=== PATIENT | female | born 1950 | race American Indian/Alaskan Native ===

== ENCOUNTER 2017-01-30 11:17 | Inpatient (IN) | payer MEDICARE ==
[2017-01-30] MEDS ORDERED: QUELICIN IV ONE (11:21)
[2017-01-30] MEDS ORDERED: NACL 0.9% 1000 ML 1,000 ML ONE (11:24)
[2017-01-30] MEDS ORDERED: NORMODYNE IV ONE ×3 (11:28→14:09)
[2017-01-30] MEDS ORDERED: ARTIFICIAL TEARS OPHTH OINT OU PRN (11:34)
[2017-01-30] MEDS ORDERED: VASELINE LIP THERAPY TP PRN (11:34)
[2017-01-30] MEDS ORDERED: KETALAR IV ONE ×4 (11:37→11:48)
[2017-01-30] MEDS ORDERED: VERSED IV ONE ×2 (11:53→22:32)
[2017-01-30] MEDS ORDERED: ZEMURON IV ONE ×2 (11:59→22:32)
[2017-01-30] MEDS ORDERED: MAGNESIUM SULFATE 2GM/50ML 2 GM/50 ML BAG IV ONE ×2 (11:59→14:09)
[2017-01-30] MEDS ORDERED: NACL 0.9% 500 ML IV SCH (12:00)
[2017-01-30] MEDS ORDERED: VERSED IV NR (12:00)
[2017-01-30] MEDS: ATIVAN 100 MG in NACL 0.9% 50 ML, VIAFLEX EMPTY CONTAINER 0 ML IV SCH ×2 (12:01→18:46)
[2017-01-30] MEDS ORDERED: DUONEB *Not for PRN Use IH ONE (12:02)
--- NOTE | 2017-01-30 12:02 | XRay Report ---
Single view chest: This History: Dysphagia. Findings: Normal cardiomediastinal silhouette. Tip of endotracheal tube in normal position. Trachea is midline. Diffuse interstitial infiltrates noted in the right lung with few scattered infiltrates in the left perihilar and left lower lobe. Normal CP angles. Impression: Probable unilateral pulmonary edema and less likely diffuse pneumonia.
[2017-01-30] MEDS ORDERED: ROCEPHIN/NS 1 GM/50 ML 1 GM/50 ML BAG IV ONE (12:14)
[2017-01-30] MEDS ORDERED: LEVAQUIN 750MG/150ML 750 MG/150 ML BAG IV ONE (12:14)
[2017-01-30 12:29] LABS: ISTAT Base Excess -5; ISTAT HCO3 22.4; ISTAT PCO2 49.7 (35-45); ISTAT PH 7.262 (7.35-7.45); ISTAT PO2 220 (80-105); ISTAT SO2 100; ISTAT TCO2 24
[2017-01-30 12:35] LABS: Hematocrit 37.7 % (30.3-42.9); Hemoglobin 11.6 gm/dl (10.1-14.3); Mean Corpuscular HGB Conc 31 % (30-34); Mean Corpuscular Hemoglobin 29 pg (28-32); Mean Corpuscular Volume 93 fl (79-97); Platelet Count 287 K/mm3 (140-440); Red Blood Count 4.06 M/mm3 (3.65-5.03); White Blood Count 5.3 K/mm3 (4.5-11.0)
[2017-01-30 12:47] LABS: Partial Thromboplastin Time 26.8 Sec. (24.2-36.6)
[2017-01-30 12:50] LABS: Creatine Kinase MB 4.4 ng/mL (0.0-4.0)
[2017-01-30 12:52] LABS: Calcium 9.6 mg/dL (8.4-10.2); Chloride 102.6 mmol/L (98-107); Magnesium 2.8 mg/dL (1.7-2.3)
[2017-01-30 12:53] LABS: Alanine Aminotransferase 26 units/L (7-56); Albumin 3.4 g/dL (3.9-5); Albumin/Globulin Ratio 0.8 %; Alkaline Phosphatase 175 units/L (35-129); Total Protein 7.6 g/dL (6.3-8.2)
[2017-01-30] MEDS ORDERED: cefTRIAXone 1 GM in NACL 0.9% 20 ML IV ONE (13:00)
[2017-01-30] MEDS ORDERED: VANCOMYCIN PHARMACY TO DOSE IV SCH (13:00)
[2017-01-30 13:03] LABS: Bilirubin,Direct < 0.2 mg/dL (0-0.2)
[2017-01-30] MEDS ORDERED: VANCOMYCIN 1,750 MG in NACL 0.9% 500 ML 500 ML IV ONE (13:45)
--- NOTE | 2017-01-30 13:45 | Consultation ---
History of Present Illness Consult date: 01/30/17 Requesting physician: NOE CUEVAS Reason for consult: other (Acute hypoxic respiraotry failure on mechnaical vent support, Right lung pneumonia) History of present illness: Information is obtained from review of her medical records and ER notes. Patient is orally intubated and on a lorazepam infusion and is unable to give me a history. She was seen and examined. Vitlas, labs, medications, chart and imaging were reviewed. Patient presented to the emergency department via EMS in respiratory distress. Apparently she was found with labored respirations. Paramedics were unable to get a pulse oximetry. They applied supplemental oxygen but not CPAP. They did not assist her airway with an Ambu bag. Alla arrived at this facility and the first pulse oximetry value was in the high 20s. The patient was placed on BIPAP in anticipation for RSI. BiPAP was very effective in preventing the patient's pulse oximetry to the low 90s, initially but she became labored, desaturated and was intubated in the ER by the ER physician. She was placed on mechanical ventilatory support and I have been consulted for critical care management. Medications and Allergies Allergies Allergy/AdvReac Type Severity Reaction Status Date / Time Sulfa (Sulfonamide Allergy Unknown Verified 01/30/17 17:09 Antibiotics) Active Meds: Active Medications Hydrophilic Ointment (Vaseline Lip Therapy) 1 applic TP Q2HR PRN PRN Reason: Dry Lips Lorazepam 100 mg/ Sodium Chloride/ Miscellaneous Information 100 mls @ 1 mls/ hr IV TITR ALFONZO; 1 MG/HR PRN Reason: Protocol Last Admin: 01/30/17 12:01 Dose: 1 mg/hr, 1 mls/hr Vancomycin HCl 1,750 mg/ (Sodium Chloride) 517.5 mls @ 258.75 mls/hr IV ONCE.ED ONE Stop: 01/30/17 15:44 Midazolam HCl (Versed) 2 mg IV ONCE NR Stop: 01/30/17 23:00 Multi-Ingred Cream/Lotion/Oil/Oint (Artificial Tears Ophth Oint) 1 applic OU Q4HR PRN PRN Reason: Dry Eye(s) Sodium Chloride (Nacl 0.9% 500 Ml) 1 ml IV DIRECT ALFONZO Vancomycin HCl (Vancomycin Pharmacy To Dose) 1 each IV PKCONSULT ALFONZO PRN Reason: Protocol Review of Systems ROS unobtainable: due to endotracheal tube, due to mental status Physical Examination Vital signs: Vital Signs Pulse Resp BP Pulse Ox 147 H 18 222/132 100 01/30/17 11:23 01/30/17 11:23 01/30/17 11:23 01/30/17 11:23 General appearance: agitated, other (orally intubated to MVS) Eyes: non-icteric ENT: oropharynx moist Neck: supple, no lymphadenopathy, no JVD Effort: mildly labored Ascultation: Right: rhonchi, Bilateral: diminished breath sounds, wheezes Cardiovascular: regular rate and rhythm, other (S1,S2, No murmurs, gallops or rubs) Gastrointestinal: normoactive bowel sounds, soft, non-tender, non-distended Integumentary: normal Extremities: no cyanosis, no edema, pulses normal, other (plaque like, pigmented lesions on the anterior tibial surfaces bilaterally) non-focal exam (patient was able to obey one step commands), pupils equal and round, unable to assess (s) Results - Laboratory Findings CBC and BMP: 01/30/17 12:10 01/30/17 12:10 ABG POC ABG pH 7.262 (7.35-7.45) L 01/30/17 12:27 POC ABG pCO2 49.7 (35-45) H 01/30/17 12:27 POC ABG pO2 220 (80-105) H 01/30/17 12:27 POC ABG HCO3 22.4 01/30/17 12:27 POC ABG Total CO2 24 01/30/17 12:27 POC ABG O2 Sat 100 01/30/17 12:27 PT/INR, D-dimer PT 13.7 Sec. (12.2-14.9) 01/30/17 12:10 INR 1.00 (0.87-1.13) 01/30/17 12:10 D-Dimer 1524.84 ng/mlDDU (0-234) H 01/30/17 12:10 Abnormal lab findings: Abnormal Labs 01/30/17 01/30/17 01/30/17 12:10 12:10 12:10 RDW 16.0 H D-Dimer 1524.84 H POC ABG pH POC ABG pCO2 POC ABG pO2 VBG pH BUN 21 H Creatinine 3.1 H Glucose 276 H Magnesium 2.80 H Alkaline Phosphatase Total Creatine Kinase 260 H CK-MB (CK-2) 4.4 H Troponin T 0.044 H NT-Pro-B Natriuret Pep Albumin HDL Cholesterol 70 H 01/30/17 01/30/17 01/30/17 12:10 12:10 12:27 RDW D-Dimer POC ABG pH 7.262 L POC ABG pCO2 49.7 H POC ABG pO2 220 H VBG pH 7.104 L* BUN Creatinine Glucose Magnesium Alkaline Phosphatase 175 H Total Creatine Kinase CK-MB (CK-2) Troponin T NT-Pro-B Natriuret Pep 9813 H Albumin 3.4 L HDL Cholesterol - Diagnostic Findings Chest x-ray: image reviewed (Right lung infiltrate multilobar, cardiomegally) Assessment and Plan - Patient Problems (1) Acute on chronic respiratory failure with hypoxia and hypercapnia Current Visit: Yes Status: Acute Plan to address problem: Continue with mechanical ventilatory support VAP bundle addressed VTE prophylaxis Stress ulcer prophylaxis Wean supplemental oxygen for O2 sats >88% Restrictive oxygen therapy Agitation and anxiety management Avoid benzodiazepines Adjust ventilator settings for improved gas exchange Lung protective strategies Daily SBT/SAT trials Serial ABGs and CXRs Patient has an elevated D-dimer, get lower extremity dopplers, however she does have enough reason for the elevation in her D-dimer (2) Multifocal pneumonia Current Visit: Yes Status: Acute Plan to address problem: Antibiotics for CAP. Appears to have an aspiration component. Moxifloxacin- as it does not need adjustments for renal function and it also treats for aspiration (3) COPD exacerbation Current Visit: Yes Status: Acute Plan to address problem: Bronchodilators Steroids while monitoring accuchecks and glycemic control Short steroid taper in view of possible heart failure (4) Cardiomyopathy Current Visit: Yes Status: Acute Qualifiers: Cardiomyopathy type: unspecified Qualified Code(s): I42.9 - Cardiomyopathy , unspecified Plan to address problem: Get 2 Dechocardiogram (5) Renal failure Current Visit: Yes Status: Acute Qualifiers: Renal failure chronicity: acute Acute renal failure type: unspecified Qualified Code(s): N17.9 - Acute kidney failure, unspecified Plan to address problem: Avoid nephrotoxic agents Adjust all medications for GFR and CrCl Monitor closely. (6) Diabetes mellitus Current Visit: Yes Status: Acute (7) Morbid obesity Current Visit: Yes Status: Acute ED Critical Care Note - Critical Care Note Total Time (mins): 61 Critical care time in (mins) excluding proc time.: 61 Critical care attestation.: If time is entered above; I have spent that time in minutes in the direct care of this critically ill patient, excluding procedure time.
[2017-01-30] MEDS ORDERED: PROVENTIL IH PRN (13:50)
[2017-01-30] MEDS ORDERED: ALUM-MAG HYDROX-SIMETH 200-200-20MG/5ML PO PRN (13:50)
[2017-01-30] MEDS ORDERED: MILK OF MAGNESIA PO PRN (13:50)
[2017-01-30] MEDS ORDERED: ZOFRAN IV PRN (13:50)
[2017-01-30] MEDS ORDERED: REGLAN PO PRN (13:50)
[2017-01-30] MEDS ORDERED: DULCOLAX PR PRN (13:50)
[2017-01-30] MEDS ORDERED: TORADOL IV PRN (13:50)
--- NOTE | 2017-01-30 14:06 | History and Physical Report ---
<DAHLIA WRIGHT - Last Filed: 01/31/17 16:33> History of Present Illness Date of examination: 01/30/17 Date of admission: 01/30/17 12:20 History of present illness: Patient presented to the emergency department via EMS in respiratory distress. Apparently she was found with labored respirations. Paramedics were unable to get a pulse oximetry. They applied supplemental oxygen but not CPAP. They did not assist her airway with an Ambu bag. Alla arrived at this facility and the first pulse oximetry value was in the high 20s. The patient was placed on BIPAP in anticipation for RSI. BiPAP was very effective in preventing the patient's pulse oximetry to the low 90s, initially but she became labored, desaturated and was intubated in the ER by the ER physician. She was placed on mechanical ventilatory support and I have been consulted for critical care management. Past History Past Medical History: hypertension, hyperlipidemia Past Surgical History: Other (unknown) Social history: smoking (never smoked) Family history: other (unknown) Medications and Allergies Allergies Allergy/AdvReac Type Severity Reaction Status Date / Time Sulfa (Sulfonamide Allergy Unknown Verified 01/30/17 17:09 Antibiotics) Home Medications Medication Instructions Recorded Confirmed Last Taken Type ALBUTEROL NEB's [Proventil] 2.5 mg IH PRN 01/31/17 01/31/17 Unknown History Albuterol Sulfate [Proventil Hfa] 6.7 gm IH PRN 01/31/17 01/31/17 Unknown History Aspirin EC [Aspirin Enteric Coated 81 mg PO QDAY 01/31/17 01/31/17 Unknown History TAB] ISOSORBIDE MONOnitrate [Imdur ER] 30 mg PO DAILY 01/31/17 01/31/17 Unknown History Metoprolol Xl [Metoprolol 100 mg PO QDAY 01/31/17 01/31/17 Unknown History SUCCINATE ER TAB] Rosuvastatin (Nf) [Crestor] 10 mg PO QDAY 01/31/17 01/31/17 Unknown History amLODIPine [Norvasc] 10 mg PO DAILY 01/31/17 01/31/17 Unknown History hydrALAZINE [Apresoline TAB] 100 mg PO TID 01/31/17 01/31/17 Unknown History Active Meds: Active Medications Al Hydrox/Mg Hydrox/Simethicone (Alum-Mag Hydrox-Simeth [phone]/5ml) 30 ml PO Q4H PRN PRN Reason: Indigestion Albuterol (Proventil) 2.5 mg IH Q3HRT PRN PRN Reason: Shortness Of Breath Bisacodyl (Dulcolax) 10 mg HI QDAY PRN PRN Reason: constipation unrelieved by MOM Heparin Sodium (Porcine) (Heparin) 5,000 unit SUB-Q Q8HR ALFONZO Hydrophilic Ointment (Vaseline Lip Therapy) 1 applic TP Q2HR PRN PRN Reason: Dry Lips Lorazepam 100 mg/ Sodium Chloride/ Miscellaneous Information 100 mls @ 1 mls/ hr IV TITR ALFONZO; 1 MG/HR PRN Reason: Protocol Last Admin: 01/30/17 12:01 Dose: 1 mg/hr, 1 mls/hr Vancomycin HCl 1,750 mg/ (Sodium Chloride) 517.5 mls @ 258.75 mls/hr IV ONCE.ED ONE Stop: 01/30/17 15:44 Ketorolac Tromethamine (Toradol) 15 mg IV Q6H PRN PRN Reason: Pain, Mild (1-3) Stop: 02/04/17 13:49 Magnesium Hydroxide (Milk Of Magnesia) 30 ml PO Q4H PRN PRN Reason: Constipation Metoclopramide HCl (Reglan) 10 mg PO Q6H PRN PRN Reason: Nausea And Vomiting Midazolam HCl (Versed) 2 mg IV ONCE NR Stop: 01/30/17 23:00 Morphine Sulfate (Morphine) 2 mg IV Q4H PRN PRN Reason: Pain, Moderate (4-6) Multi-Ingred Cream/Lotion/Oil/Oint (Artificial Tears Ophth Oint) 1 applic OU Q4HR PRN PRN Reason: Dry Eye(s) Sodium Chloride (Nacl 0.9% 500 Ml) 1 ml IV DIRECT ALFONZO Vancomycin HCl (Vancomycin Pharmacy To Dose) 1 each IV PKCONSULT ALFONZO PRN Reason: Protocol Exam - Constitutional Vitals: Temp Pulse Resp BP Pulse Ox 97.6 F 100 H 22 134/88 96 01/30/17 12:50 01/30/17 13:15 01/30/17 13:15 01/30/17 13:15 01/30/17 13:15 - Rectal Rectal Exam: deferred - Allied Health Allied health notes reviewed: nursing Results - Labs CBC & Chem 7: 01/31/17 04:27 01/31/17 04:27 Labs: Laboratory Last Values WBC 5.3 K/mm3 (4.5-11.0) 01/30/17 12:10 RBC 4.06 M/mm3 (3.65-5.03) 01/30/17 12:10 Hgb 11.6 gm/dl (10.1-14.3) 01/30/17 12:10 Hct 37.7 % (30.3-42.9) 01/30/17 12:10 MCV 93 fl (79-97) 01/30/17 12:10 MCH 29 pg (28-32) 01/30/17 12:10 MCHC 31 % (30-34) 01/30/17 12:10 RDW 16.0 % (13.2-15.2) H 01/30/17 12:10 Plt Count 287 K/mm3 (140-440) 01/30/17 12:10 Eos % (Auto) Conventional Underwriter 01/30/17 12:10 PT 13.7 Sec. (12.2-14.9) 01/30/17 12:10 INR 1.00 (0.87-1.13) 01/30/17 12:10 APTT 26.8 Sec. (24.2-36.6) 01/30/17 12:10 D-Dimer 1524.84 ng/mlDDU (0-234) H 01/30/17 12:10 POC ABG pH 7.262 (7.35-7.45) L 01/30/17 12:27 POC ABG pCO2 49.7 (35-45) H 01/30/17 12:27 POC ABG pO2 220 (80-105) H 01/30/17 12:27 POC ABG HCO3 22.4 01/30/17 12:27 POC ABG Total CO2 24 01/30/17 12:27 POC ABG O2 Sat 100 01/30/17 12:27 POC ABG Base Excess -5 01/30/17 12:27 VBG pH 7.104 (7.320-7.420) L* 01/30/17 12:10 FiO2 50 % 01/30/17 12:27 Sodium 139 mmol/L (137-145) 01/30/17 12:10 Potassium 5.0 mmol/L (3.6-5.0) 01/30/17 12:10 Chloride 102.6 mmol/L (98-107) 01/30/17 12:10 Carbon Dioxide 23 mmol/L (22-30) 01/30/17 12:10 Anion Gap 18 mmol/L 01/30/17 12:10 BUN 21 mg/dL (7-17) H 01/30/17 12:10 Creatinine 3.1 mg/dL (0.7-1.2) H 01/30/17 12:10 Estimated GFR 18 ml/min 01/30/17 12:10 BUN/Creatinine Ratio 7 % 01/30/17 12:10 Glucose 276 mg/dL (65-100) H 01/30/17 12:10 Ketones Quantitative Negative (Negative) 01/30/17 12:10 Calcium 9.6 mg/dL (8.4-10.2) 01/30/17 12:10 Magnesium 2.80 mg/dL (1.7-2.3) H 01/30/17 12:10 Total Bilirubin 0.20 mg/dL (0.1-1.2) 01/30/17 12:10 Direct Bilirubin < 0.2 mg/dL (0-0.2) 01/30/17 12:10 AST 33 units/L (5-40) 01/30/17 12:10 ALT 26 units/L (7-56) 01/30/17 12:10 Alkaline Phosphatase 175 units/L (35-129) H 01/30/17 12:10 Total Creatine Kinase 260 units/L (30-135) H 01/30/17 12:10 CK-MB (CK-2) 4.4 ng/mL (0.0-4.0) H 01/30/17 12:10 CK-MB (CK-2) Rel Index 1.6 (0-4) 01/30/17 12:10 Troponin T 0.044 ng/mL (0.00-0.029) H 01/30/17 12:10 NT-Pro-B Natriuret Pep 9813 pg/mL (0-900) H 01/30/17 12:10 Total Protein 7.6 g/dL (6.3-8.2) 01/30/17 12:10 Albumin 3.4 g/dL (3.9-5) L 01/30/17 12:10 Albumin/Globulin Ratio 0.8 % 01/30/17 12:10 Triglycerides 115 mg/dL (2-149) 01/30/17 12:10 Cholesterol 157 mg/dL (50-199) 01/30/17 12:10 LDL Cholesterol Direct 64 mg/dL (50-130) 01/30/17 12:10 HDL Cholesterol 70 mg/dL (40-59) H 01/30/17 12:10 Cholesterol/HDL Ratio 2.24 % 01/30/17 12:10 Blood Type A POSITIVE 01/30/17 12:09 Antibody Screen Negative 01/30/17 12:09 Assessment and Plan - Patient Problems (1) Hyperglycemia Current Visit: Yes Status: Acute (2) GEORGE (acute kidney injury) Current Visit: Yes Status: Acute (3) Respiratory failure Current Visit: Yes Status: Acute QualifierTitle: Chronicity: acute Respiratory failure complication: hypoxia Qualified Code(s): J96.01 - Acute respiratory failure with hypoxia (4) UTI (urinary tract infection) Current Visit: Yes Status: Acute QualifierTitle: Urinary tract infection type: acute cystitis Hematuria presence: without hematuria Qualified Code(s): N30.00 - Acute cystitis without hematuria (5) Cardiomyopathy Current Visit: Yes Status: Chronic QualifierTitle: Cardiomyopathy type: unspecified Qualified Code(s): I42.9 - Cardiomyopathy, unspecified <NOE CUEVAS S - Last Filed: 02/01/17 11:35> History of Present Illness Date of admission: 01/30/17 12:20 Chief complaint: CC AMS and decreased /Laborious respirations Medications and Allergies Active Meds: Active Medications Al Hydrox/Mg Hydrox/Simethicone (Alum-Mag Hydrox-Simeth [phone]/5ml) 30 ml PO Q4H PRN PRN Reason: Indigestion Albuterol (Proventil) 2.5 mg IH Q3HRT PRN PRN Reason: Shortness Of Breath Aspirin (Aspirin) 300 mg HI QDAY ONE Stop: 01/31/17 17:31 Bisacodyl (Dulcolax) 10 mg HI QDAY PRN PRN Reason: constipation unrelieved by MOM Heparin Sodium (Porcine) (Heparin) 5,000 unit SUB-Q Q8HR ALFONZO Hydrophilic Ointment (Vaseline Lip Therapy) 1 applic TP Q2HR PRN PRN Reason: Dry Lips Lorazepam 100 mg/ Sodium Chloride/ Miscellaneous Information 100 mls @ 1 mls/ hr IV TITR ALFONZO; 1 MG/HR PRN Reason: Protocol Last Admin: 01/30/17 18:46 Dose: 5 mg/hr, 5 mls/hr Vancomycin HCl 1,250 mg/ (Sodium Chloride) 262.5 mls @ 131.25 mls/hr IV Q48H ALFONZO Fentanyl Citrate (Fentanyl Drip Premix) 2,000 mcg in 100 mls @ 2.268 mls/hr IV TITR ALFONZO; 0.5 MCG/KG/HR PRN Reason: Protocol Last Admin: 01/30/17 14:57 Dose: 1 mcg/kg/hr, 4.536 mls/hr Propofol (Diprivan 10 Mg/Ml) 1,000 mg in 100 mls @ 2.722 mls/hr IV TITR ALFONZO; 5 MCG/KG/MIN PRN Reason: Protocol Last Admin: 01/30/17 21:50 Dose: 18 mcg/kg/min, 9.798 mls/hr Piperacillin Sod/Tazobactam Sod (Zosyn/Ns 2.25 Gm/50ml) 2.25 gm in 50 mls @ 100 mls/hr IV Q8H ALFONZO PRN Reason: Protocol Last Admin: 01/30/17 20:28 Dose: 100 mls/hr Ketorolac Tromethamine (Toradol) 15 mg IV Q6H PRN PRN Reason: Pain, Mild (1-3) Stop: 02/04/17 13:49 Magnesium Hydroxide (Milk Of Magnesia) 30 ml PO Q4H PRN PRN Reason: Constipation Metoclopramide HCl (Reglan) 10 mg PO Q6H PRN PRN Reason: Nausea And Vomiting Morphine Sulfate (Morphine) 2 mg IV Q4H PRN PRN Reason: Pain, Moderate (4-6) Multi-Ingred Cream/Lotion/Oil/Oint (Artificial Tears Ophth Oint) 1 applic OU Q4HR PRN PRN Reason: Dry Eye(s) Ondansetron HCl (Zofran) 4 mg IV Q8H PRN PRN Reason: N/V unrelieved by Reglan Sodium Chloride (Nacl 0.9% 500 Ml) 1 ml IV DIRECT ALFONZO Vancomycin HCl (Vancomycin Pharmacy To Dose) 1 each IV PKCONSULT ALFONZO PRN Reason: Protocol Review of Systems All systems: negative Respiratory: shortness of breath, wheezing Exam - Constitutional Vitals: Temp Pulse Resp BP Pulse Ox 99.2 F 104 H 20 144/73 98 01/30/17 23:37 01/31/17 01:56 01/30/17 17:30 01/30/17 19:15 01/31/17 01:56 General appearance: Present: no acute distress, well-nourished - EENT Eyes: Present: PERRL ENT: hearing intact, clear oral mucosa - Neck Neck: Present: supple, normal ROM - Respiratory Respiratory effort: normal Respiratory: bilateral: CTA, diminished, rhonchi - Cardiovascular Heart rate: 106 Rhythm: regular Heart Sounds: Present: S1 & S2. Absent: rub, click - Extremities Extremities: pulses symmetrical, No edema Peripheral Pulses: within normal limits - Abdominal General gastrointestinal: Present: soft, non-tender, non-distended, normal bowel sounds Female genitourinary: Present: normal - Integumentary Integumentary: Present: clear, warm, dry - Musculoskeletal Musculoskeletal: gait normal, strength equal bilaterally - Psychiatric Psychiatric: appropriate mood/affect, intact judgment & insight - Neurologic Neurologic: CNII-XII intact, moves all extremities Results - Labs CBC & Chem 7: 01/31/17 04:27 02/01/17 07:57 Labs: Laboratory Last Values WBC 5.3 K/mm3 (4.5-11.0) 01/30/17 12:10 RBC 4.06 M/mm3 (3.65-5.03) 01/30/17 12:10 Hgb 11.6 gm/dl (10.1-14.3) 01/30/17 12:10 Hct 37.7 % (30.3-42.9) 01/30/17 12:10 MCV 93 fl (79-97) 01/30/17 12:10 MCH 29 pg (28-32) 01/30/17 12:10 MCHC 31 % (30-34) 01/30/17 12:10 RDW 16.0 % (13.2-15.2) H 01/30/17 12:10 Plt Count 287 K/mm3 (140-440) 01/30/17 12:10 Eos % (Auto) Conventional Underwriter 01/30/17 12:10 Add Manual Diff Complete 01/30/17 12:10 Total Counted 100 01/30/17 12:10 Seg Neuts % (Manual) 34.0 % (40.0-70.0) L 01/30/17 12:10 Band Neutrophils % 0 % 01/30/17 12:10 Lymphocytes % (Manual) 29.0 % (13.4-35.0) 01/30/17 12:10 Reactive Lymphs % (Man) 0 % 01/30/17 12:10 Monocytes % (Manual) 6.0 % (0.0-7.3) 01/30/17 12:10 Eosinophils % (Manual) 30.0 % (0.0-4.3) H 01/30/17 12:10 Basophils % (Manual) 1.0 % (0.0-1.8) 01/30/17 12:10 Metamyelocytes % 0 % 01/30/17 12:10 Myelocytes % 0 % 01/30/17 12:10 Promyelocytes % 0 % 01/30/17 12:10 Blast Cells % 0 % 01/30/17 12:10 Nucleated RBC % Not Reportable 01/30/17 12:10 Seg Neutrophils # Man 1.8 K/mm3 (1.8-7.7) 01/30/17 12:10 Band Neutrophils # 0.0 K/mm3 01/30/17 12:10 Lymphocytes # (Manual) 1.5 K/mm3 (1.2-5.4) 01/30/17 12:10 Abs React Lymphs (Man) 0.0 K/mm3 01/30/17 12:10 Monocytes # (Manual) 0.3 K/mm3 (0.0-0.8) 01/30/17 12:10 Eosinophils # (Manual) 1.6 K/mm3 (0.0-0.4) H 01/30/17 12:10 Basophils # (Manual) 0.1 K/mm3 (0.0-0.1) 01/30/17 12:10 Metamyelocytes # 0.0 K/mm3 01/30/17 12:10 Myelocytes # 0.0 K/mm3 01/30/17 12:10 Promyelocytes # 0.0 K/mm3 01/30/17 12:10 Blast Cells # 0.0 K/mm3 01/30/17 12:10 WBC Morphology Not Reportable 01/30/17 12:10 Hypersegmented Neuts Not Reportable 01/30/17 12:10 Hyposegmented Neuts Not Reportable 01/30/17 12:10 Hypogranular Neuts Not Reportable 01/30/17 12:10 Smudge Cells Not Reportable 01/30/17 12:10 Toxic Granulation Not Reportable 01/30/17 12:10 Toxic Vacuolation Not Reportable 01/30/17 12:10 Dohle Bodies Not Reportable 01/30/17 12:10 Pelger-Huet Anomaly Not Reportable 01/30/17 12:10 Robert Rods Not Reportable 01/30/17 12:10 Platelet Estimate Appears normal 01/30/17 12:10 Clumped Platelets Not Reportable 01/30/17 12:10 Plt Clumps, EDTA Not Reportable 01/30/17 12:10 Large Platelets Not Reportable 01/30/17 12:10 Giant Platelets Not Reportable 01/30/17 12:10 Platelet Satelliting Not Reportable 01/30/17 12:10 Plt Morphology Comment Not Reportable 01/30/17 12:10 RBC Morphology Not Reportable 01/30/17 12:10 Dimorphic RBCs Not Reportable 01/30/17 12:10 Polychromasia Not Reportable 01/30/17 12:10 Hypochromasia Not Reportable 01/30/17 12:10 Poikilocytosis Not Reportable 01/30/17 12:10 Anisocytosis 1+ 01/30/17 12:10 Microcytosis Not Reportable 01/30/17 12:10 Macrocytosis Not Reportable 01/30/17 12:10 Spherocytes Not Reportable 01/30/17 12:10 Pappenheimer Bodies Not Reportable 01/30/17 12:10 Sickle Cells Not Reportable 01/30/17 12:10 Target Cells Not Reportable 01/30/17 12:10 Tear Drop Cells Not Reportable 01/30/17 12:10 Ovalocytes Few 01/30/17 12:10 Helmet Cells Not Reportable 01/30/17 12:10 Major-[place] Bodies Not Reportable 01/30/17 12:10 [place] Rings Not Reportable 01/30/17 12:10 Derrell Cells Not Reportable 01/30/17 12:10 Bite Cells Not Reportable 01/30/17 12:10 Crenated Cell Not Reportable 01/30/17 12:10 Elliptocytes Not Reportable 01/30/17 12:10 Acanthocytes (Spur) Not Reportable 01/30/17 12:10 Rouleaux Not Reportable 01/30/17 12:10 Hemoglobin C Crystals Not Reportable 01/30/17 12:10 Schistocytes Not Reportable 01/30/17 12:10 Malaria parasites Not Reportable 01/30/17 12:10 Patrice Bodies Not Reportable 01/30/17 12:10 Hem Pathologist Commnt No 01/30/17 12:10 PT 13.7 Sec. (12.2-14.9) 01/30/17 12:10 INR 1.00 (0.87-1.13) 01/30/17 12:10 APTT 26.8 Sec. (24.2-36.6) 01/30/17 12:10 D-Dimer 1524.84 ng/mlDDU (0-234) H 01/30/17 12:10 POC ABG pH 7.262 (7.35-7.45) L 01/30/17 12:27 POC ABG pCO2 49.7 (35-45) H 01/30/17 12:27 POC ABG pO2 220 (80-105) H 01/30/17 12:27 POC ABG HCO3 22.4 01/30/17 12:27 POC ABG Total CO2 24 01/30/17 12:27 POC ABG O2 Sat 100 01/30/17 12:27 POC ABG Base Excess -5 01/30/17 12:27 VBG pH 7.104 (7.320-7.420) L* 01/30/17 12:10 FiO2 50 % 01/30/17 12:27 Sodium 139 mmol/L (137-145) 01/30/17 12:10 Potassium 5.0 mmol/L (3.6-5.0) 01/30/17 12:10 Chloride 102.6 mmol/L (98-107) 01/30/17 12:10 Carbon Dioxide 23 mmol/L (22-30) 01/30/17 12:10 Anion Gap 18 mmol/L 01/30/17 12:10 BUN 21 mg/dL (7-17) H 01/30/17 12:10 Creatinine 3.1 mg/dL (0.7-1.2) H 01/30/17 12:10 Estimated GFR 18 ml/min 01/30/17 12:10 BUN/Creatinine Ratio 7 % 01/30/17 12:10 Glucose 276 mg/dL (65-100) H 01/30/17 12:10 Ketones Quantitative Negative (Negative) 01/30/17 12:10 Lactic Acid 2.00 mmol/L (0.7-2.0) 01/30/17 17:55 Calcium 9.6 mg/dL (8.4-10.2) 01/30/17 12:10 Magnesium 2.80 mg/dL (1.7-2.3) H 01/30/17 12:10 Total Bilirubin 0.20 mg/dL (0.1-1.2) 01/30/17 12:10 Direct Bilirubin < 0.2 mg/dL (0-0.2) 01/30/17 12:10 AST 33 units/L (5-40) 01/30/17 12:10 ALT 26 units/L (7-56) 01/30/17 12:10 Alkaline Phosphatase 175 units/L (35-129) H 01/30/17 12:10 Total Creatine Kinase 260 units/L (30-135) H 01/30/17 12:10 CK-MB (CK-2) 4.4 ng/mL (0.0-4.0) H 01/30/17 12:10 CK-MB (CK-2) Rel Index 1.6 (0-4) 01/30/17 12:10 Troponin T 0.022 ng/mL (0.00-0.029) 01/30/17 15:41 NT-Pro-B Natriuret Pep 9813 pg/mL (0-900) H 01/30/17 12:10 Total Protein 7.6 g/dL (6.3-8.2) 01/30/17 12:10 Albumin 3.4 g/dL (3.9-5) L 01/30/17 12:10 Albumin/Globulin Ratio 0.8 % 01/30/17 12:10 Triglycerides 115 mg/dL (2-149) 01/30/17 12:10 Cholesterol 157 mg/dL (50-199) 01/30/17 12:10 LDL Cholesterol Direct 64 mg/dL (50-130) 01/30/17 12:10 HDL Cholesterol 70 mg/dL (40-59) H 01/30/17 12:10 Cholesterol/HDL Ratio 2.24 % 01/30/17 12:10 Urine Color Yellow (Yellow) 01/30/17 12:37 Urine Turbidity Slightly-cloudy (Clear) 01/30/17 12:37 Urine pH 5.0 (5.0-7.0) 01/30/17 12:37 Ur Specific [place] 1.014 (1.003-1.030) 01/30/17 12:37 Urine Protein >500 mg/dL (Negative) 01/30/17 12:37 Urine Glucose (UA) 50 mg/dL (Negative) 01/30/17 12:37 Urine Ketones Neg mg/dL (Negative) 01/30/17 12:37 Urine Blood Neg (Negative) 01/30/17 12:37 Urine Nitrite Neg (Negative) 01/30/17 12:37 Urine Bilirubin Neg (Negative) 01/30/17 12:37 Urine Urobilinogen < 2.0 mg/dL (<2.0) 01/30/17 12:37 Ur Leukocyte Esterase Sm (Negative) 01/30/17 12:37 Urine WBC (Auto) 24.0 /HPF (0.0-6.0) H 01/30/17 12:37 Urine RBC (Auto) 5.0 /HPF (0.0-6.0) 01/30/17 12:37 U Epithel Cells (Auto) < 1.0 /HPF (0-13.0) 01/30/17 12:37 Urine Bacteria (Auto) 2+ /HPF (Negative) 01/30/17 12:37 Blood Type A POSITIVE 01/30/17 12:09 Antibody Screen Negative 01/30/17 12:09 Short CBC 01/30/17 Range/Units 12:10 WBC 5.3 (4.5-11.0) K/mm3 Hgb 11.6 (10.1-14.3) gm/dl Hct 37.7 (30.3-42.9) % Plt Count 287 (140-440) K/mm3 BMP 01/30/17 12:10 Sodium 139 Potassium 5.0 Chloride 102.6 Carbon Dioxide 23 BUN 21 H Creatinine 3.1 H Glucose 276 H Calcium 9.6 Cardiac Enzymes 01/30/17 01/30/17 Range/Units 12:10 15:41 Total Creatine Kinase 260 H (30-135) units/L CK-MB (CK-2) 4.4 H (0.0-4.0) ng/mL Troponin T 0.044 H 0.022 (0.00-0.029) ng/mL Liver Function 01/30/17 Range/Units 12:10 Total Bilirubin 0.20 (0.1-1.2) mg/dL Direct Bilirubin < 0.2 (0-0.2) mg/dL AST 33 (5-40) units/L ALT 26 (7-56) units/L Alkaline Phosphatase 175 H (35-129) units/L Albumin 3.4 L (3.9-5) g/dL Urine 01/30/17 Range/Units 12:37 Urine Color Yellow (Yellow) Urine pH 5.0 (5.0-7.0) Ur Specific [place] 1.014 (1.003-1.030) Urine Protein >500 (Negative) mg/dL Urine Glucose (UA) 50 (Negative) mg/dL - Imaging and Cardiology Chest x-ray: report reviewed (RLL Pneumonia versus Pulm edema) Assessment and Plan Advance Directives: Yes (Full code) VTE prophylaxis?: Chemical Plan of care discussed with patient/family: Yes - Patient Problems (1) Respiratory failure Current Visit: Yes Status: Acute Qualifiers: Chronicity: acute Respiratory failure complication: hypoxia Qualified Code(s): J96.01 - Acute respiratory failure with hypoxia Plan to address problem: Patient intubated for airway protection and respiratory failure. Intensiivist consult placed Wean off vent support (2) RLL pneumonia Current Visit: Yes Status: Acute Qualifiers: Pneumonia type: aspiration pneumonia Plan to address problem: Possible aspiration pneumonia IV Zosyn and Vancomycin (3) Diabetes mellitus Current Visit: Yes Status: Chronic Qualifiers: Diabetes mellitus type: type 2 Chronic kidney disease stage: stage 3 ( moderate) Plan to address problem: Cont coverage Levemir added Check A1c (4) Cardiomyopathy Current Visit: Yes Status: Chronic Qualifiers: Cardiomyopathy type: unspecified Qualified Code(s): I42.9 - Cardiomyopathy , unspecified Plan to address problem: ECHO Lasix q12 (5) UTI (urinary tract infection) Current Visit: Yes Status: Acute Qualifiers: Urinary tract infection type: acute cystitis Hematuria presence: without hematuria Qualified Code(s): N30.00 - Acute cystitis without hematuria Plan to address problem: on Zosyn (6) GEORGE (acute kidney injury) Current Visit: Yes Status: Acute Plan to address problem: IV FLUIDS FOR NOW> (7) DVT prophylaxis Current Visit: Yes Status: Acute Plan to address problem: ON LOVENOX
[2017-01-30] MEDS ORDERED: NACL 0.9% 1000 ML 1,000 ML IV ONE (14:14)
--- NOTE | 2017-01-30 14:18 | Cat Scan Report ---
CT scan of head without IV contrast: History: AMS. Findings: Ventricles are normal in size and midline in location. No evidence of acute ischemia, hemorrhage or mass. No extra-axial fluid collection. Normal brainstem and cerebellum . Marked mucosal thickening of the maxillary and ethmoid and sphenoid sinuses. Normal mastoid air cells. Impression: No acute intracranial abnormality. Sinus disease
[2017-01-30 14:33] LABS: Blastocytes % (Manual) 0 %
[2017-01-30 14:34] LABS: Anisocytosis 1+; Diff Status Complete; Ovalocytes Few
[2017-01-30 14:39] LABS: Bacteria,Urine 2+ /HPF (Negative); Bilirubin,Urine NEG (Negative); Blood,Urine NEG (Negative); Ketones,Urine NEG (Negative); Leukocyte Esterase,Urine SM (Negative); Nitrite,Urine NEG (Negative); Urobilinogen,Urine < 2.0 mg/dL (<2.0)
[2017-01-30 14:44] LABS: Protein,Urine >500 mg/dL (Negative)
[2017-01-30] MEDS ORDERED: fentaNYL DRIP Premix 2,000 MCG/100 ML BAG IV SCH (15:00)
[2017-01-30] MEDS ORDERED: ATIVAN IV ONE (15:03)
[2017-01-30] MEDS ORDERED: DIPRIVAN 10 MG/ML 1,000 MG/100 ML BOTTLE IV ONE (15:06)
[2017-01-30] MEDS: DIPRIVAN 10 MG/ML 1,000 MG/100 ML BOTTLE IV SCH ×2 (15:12→21:50)
[2017-01-30] MEDS ORDERED: DUONEB *Not for PRN Use IH SCH (16:00)
--- NOTE | 2017-01-30 17:19 | Emergency Department Report ---
ED General Adult HPI - General Chief complaint: Dyspnea/Respdistress Stated complaint: ASTHMA ATTACK Time Seen by Provider: 01/30/17 11:28 Source: EMS Mode of arrival: Stretcher Limitations: Altered Mental Status - History of Present Illness Initial comments: Patient presents to the emergency department via EMS in respiratory distress. Apparently he was found with labored respirations. Paramedics were unable to get a pulse oximetry. They applied supplemental oxygen but not CPAP. They did not assist his airway with an Ambu bag. He arrived at this facility and the first pulse oximetry value I viewed was in the high 20s. The patient was placed on BiPAP in anticipation for RSI. BiPAP was very effective in preventing the patient's pulse oximetry to the low 90s. She was then prepared for RSI. With gentle and blue assist we achieved a pre-RSI pulse oximetry of 100%. Patient continued to breathe spontaneously. No other history was available to us at that time. Severity scale (0 -10): 0 Associated Symptoms: denies other symptoms - Related Data Allergies Allergy/AdvReac Type Severity Reaction Status Date / Time Sulfa (Sulfonamide Allergy Unknown Verified 01/30/17 17:09 Antibiotics) ED Review of Systems ROS: Stated complaint: ASTHMA ATTACK Other details as noted in HPI Comment: Unobtainable due to pts medical conditions ED Past Medical Hx - Past Medical History Hx Asthma: Yes - Surgical History Additional Surgical History: unknown - Social History Smoking Status: Unknown if ever smoked ED Physical Exam - General Limitations: Altered Mental Status General appearance: alert, in no apparent distress - Head Head exam: Present: atraumatic, normocephalic - Eye Eye exam: Present: normal appearance, other (small pupils probably reactive ). Absent: scleral icterus - ENT ENT exam: Present: mucous membranes moist - Neck Neck exam: Present: normal inspection. Absent: tenderness, meningismus - Respiratory Respiratory exam: Present: respiratory distress, wheezes, rhonchi (bilateral scattered rhonchi) - Cardiovascular Cardiovascular Exam: Present: regular rate, normal rhythm. Absent: systolic murmur, diastolic murmur, rubs, gallop - GI/Abdominal GI/Abdominal exam: Present: soft, normal bowel sounds. Absent: distended, tenderness, guarding, rebound, rigid - Extremities Exam Extremities exam: Present: normal inspection - Back Exam Back exam: Present: normal inspection - Neurological Exam Neurological exam: Present: altered, CN II-XII intact. Absent: motor sensory deficit - Psychiatric Psychiatric exam: Present: other (obtunded patient) - Skin Skin exam: Present: warm, dry, intact, normal color. Absent: rash ED Course Vital Signs 01/30/17 01/30/17 01/30/17 11:23 11:40 11:54 Temperature Pulse Rate 147 H 88 120 H Pulse Rate [ Bilateral Upper Lobe] Respiratory 18 20 Rate Respiratory Rate [Bilateral Upper Lobe] Blood Pressure 140/55 Blood Pressure 222/132 141/97 [Left] O2 Sat by Pulse 100 98 96 Oximetry 01/30/17 01/30/17 01/30/17 12:13 12:15 12:30 Temperature Pulse Rate 110 H 110 H Pulse Rate [ 115 H Bilateral Upper Lobe] Respiratory 16 22 Rate Respiratory 18 Rate [Bilateral Upper Lobe] Blood Pressure Blood Pressure 92/68 175/106 [Left] O2 Sat by Pulse 98 97 Oximetry 01/30/17 01/30/17 01/30/17 12:31 12:45 12:50 Temperature 97.6 F Pulse Rate 107 H Pulse Rate [ 120 H Bilateral Upper Lobe] Respiratory 22 Rate Respiratory 22 Rate [Bilateral Upper Lobe] Blood Pressure Blood Pressure 140/90 [Left] O2 Sat by Pulse 96 Oximetry 01/30/17 01/30/17 01/30/17 13:00 13:15 14:30 Temperature Pulse Rate 104 H 100 H 102 H Pulse Rate [ Bilateral Upper Lobe] Respiratory 22 22 20 Rate Respiratory Rate [Bilateral Upper Lobe] Blood Pressure Blood Pressure 142/91 134/88 153/92 [Left] O2 Sat by Pulse 95 96 97 Oximetry 01/30/17 01/30/17 01/30/17 15:00 15:30 16:00 Temperature Pulse Rate 103 H 103 H 102 H Pulse Rate [ Bilateral Upper Lobe] Respiratory 22 20 20 Rate Respiratory Rate [Bilateral Upper Lobe] Blood Pressure Blood Pressure 158/86 153/90 153/85 [Left] O2 Sat by Pulse 96 96 97 Oximetry 01/30/17 16:12 Temperature 98.4 F Pulse Rate Pulse Rate [ Bilateral Upper Lobe] Respiratory Rate Respiratory Rate [Bilateral Upper Lobe] Blood Pressure Blood Pressure [Left] O2 Sat by Pulse Oximetry - Reevaluation(s) Reevaluation #1: Patient was intubated with a kaleidoscope on arrival. Ultimately the patient was admitted to the hospitalist service by Dr. Fox. Her chest x-ray suggested a diffuse right-sided pneumonia. She was given antibiotic coverage and fluids. She was given bronchodilators. I spoke with the filter tank tender concerning her presentation. She is admitted to the ICU. 01/30/17 17:22 01/30/17 17:27 - Intubation Time Out Performed: No Sedative: Ketamine Paralytic: Succinylcholine Laryngoscope: fiberoptic video scope ET Tube Size: 8 Tube Secured Depth (cm): 23 Tube Secured Location: lips Tube Placement Confirmation: visualized tube passing t, equal breath sounds bilat, no breath sounds over epi, confirmation by capnometr Patient Tolerated Procedure: well Intubation Complications: none ED Medical Decision Making - Lab Data Result diagrams: 01/30/17 12:10 01/30/17 12:10 Laboratory Results - last 24 hr 01/30/17 01/30/17 01/30/17 12:09 12:10 12:10 WBC 5.3 RBC 4.06 Hgb 11.6 Hct 37.7 MCV 93 MCH 29 MCHC 31 RDW 16.0 H Plt Count 287 Eos % (Auto) Office Correspondent Add Manual Diff Complete Total Counted 100 Seg Neuts % (Manual) 34.0 L Band Neutrophils % 0 Lymphocytes % (Manual) 29.0 Reactive Lymphs % (Man) 0 Monocytes % (Manual) 6.0 Eosinophils % (Manual) 30.0 H Basophils % (Manual) 1.0 Metamyelocytes % 0 Myelocytes % 0 Promyelocytes % 0 Blast Cells % 0 Nucleated RBC % Not Reportable Seg Neutrophils # Man 1.8 Band Neutrophils # 0.0 Lymphocytes # (Manual) 1.5 Abs React Lymphs (Man) 0.0 Monocytes # (Manual) 0.3 Eosinophils # (Manual) 1.6 H Basophils # (Manual) 0.1 Metamyelocytes # 0.0 Myelocytes # 0.0 Promyelocytes # 0.0 Blast Cells # 0.0 WBC Morphology Not Reportable Hypersegmented Neuts Not Reportable Hyposegmented Neuts Not Reportable Hypogranular Neuts Not Reportable Smudge Cells Not Reportable Toxic Granulation Not Reportable Toxic Vacuolation Not Reportable Dohle Bodies Not Reportable Pelger-Huet Anomaly Not Reportable Robert Rods Not Reportable Platelet Estimate Appears normal Clumped Platelets Not Reportable Plt Clumps, EDTA Not Reportable Large Platelets Not Reportable Giant Platelets Not Reportable Platelet Satelliting Not Reportable Plt Morphology Comment Not Reportable RBC Morphology Not Reportable Dimorphic RBCs Not Reportable Polychromasia Not Reportable Hypochromasia Not Reportable Poikilocytosis Not Reportable Anisocytosis 1+ Microcytosis Not Reportable Macrocytosis Not Reportable Spherocytes Not Reportable Pappenheimer Bodies Not Reportable Sickle Cells Not Reportable Target Cells Not Reportable Tear Drop Cells Not Reportable Ovalocytes Few Helmet Cells Not Reportable [place] Bodies Not Reportable Bracey Rings Not Reportable Naselle Cells Not Reportable Bite Cells Not Reportable Crenated Cell Not Reportable Elliptocytes Not Reportable Acanthocytes (Spur) Not Reportable Rouleaux Not Reportable Hemoglobin C Crystals Not Reportable Schistocytes Not Reportable Malaria parasites Not Reportable Patrice Bodies Not Reportable Hem Pathologist Commnt No PT 13.7 INR 1.00 APTT 26.8 D-Dimer 1524.84 H POC ABG pH POC ABG pCO2 POC ABG pO2 POC ABG HCO3 POC ABG Total CO2 POC ABG O2 Sat POC ABG Base Excess VBG pH FiO2 Sodium Potassium Chloride Carbon Dioxide Anion Gap BUN Creatinine Estimated GFR BUN/Creatinine Ratio Glucose Ketones Quantitative Calcium Magnesium Total Bilirubin Direct Bilirubin AST ALT Alkaline Phosphatase Total Creatine Kinase CK-MB (CK-2) CK-MB (CK-2) Rel Index Troponin T NT-Pro-B Natriuret Pep Total Protein Albumin Albumin/Globulin Ratio Triglycerides Cholesterol LDL Cholesterol Direct HDL Cholesterol Cholesterol/HDL Ratio Urine Color Urine Turbidity Urine pH Ur Specific Upper Tract Urine Protein Urine Glucose (UA) Urine Ketones Urine Blood Urine Nitrite Urine Bilirubin Urine Urobilinogen Ur Leukocyte Esterase Urine WBC (Auto) Urine RBC (Auto) U Epithel Cells (Auto) Urine Bacteria (Auto) Blood Type A POSITIVE Antibody Screen Negative 01/30/17 01/30/17 01/30/17 12:10 12:10 12:10 WBC RBC Hgb Hct MCV MCH MCHC RDW Plt Count Eos % (Auto) Add Manual Diff Total Counted Seg Neuts % (Manual) Band Neutrophils % Lymphocytes % (Manual) Reactive Lymphs % (Man) Monocytes % (Manual) Eosinophils % (Manual) Basophils % (Manual) Metamyelocytes % Myelocytes % Promyelocytes % Blast Cells % Nucleated RBC % Seg Neutrophils # Man Band Neutrophils # Lymphocytes # (Manual) Abs React Lymphs (Man) Monocytes # (Manual) Eosinophils # (Manual) Basophils # (Manual) Metamyelocytes # Myelocytes # Promyelocytes # Blast Cells # WBC Morphology Hypersegmented Neuts Hyposegmented Neuts Hypogranular Neuts Smudge Cells Toxic Granulation Toxic Vacuolation Dohle Bodies Pelger-Huet Anomaly Robert Rods Platelet Estimate Clumped Platelets Plt Clumps, EDTA Large Platelets Giant Platelets Platelet Satelliting Plt Morphology Comment RBC Morphology Dimorphic RBCs Polychromasia Hypochromasia Poikilocytosis Anisocytosis Microcytosis Macrocytosis Spherocytes Pappenheimer Bodies Sickle Cells Target Cells Tear Drop Cells Ovalocytes Helmet Cells [place] Bodies Bracey Rings Derrell Cells Bite Cells Crenated Cell Elliptocytes Acanthocytes (Spur) Rouleaux Hemoglobin C Crystals Schistocytes Malaria parasites Patrice Bodies Hem Pathologist Commnt PT INR APTT D-Dimer POC ABG pH POC ABG pCO2 POC ABG pO2 POC ABG HCO3 POC ABG Total CO2 POC ABG O2 Sat POC ABG Base Excess VBG pH FiO2 Sodium 139 Potassium 5.0 Chloride 102.6 Carbon Dioxide 23 Anion Gap 18 BUN 21 H Creatinine 3.1 H Estimated GFR 18 BUN/Creatinine Ratio 7 Glucose 276 H Ketones Quantitative Negative Calcium 9.6 Magnesium 2.80 H Total Bilirubin 0.20 Direct Bilirubin < 0.2 AST 33 ALT 26 Alkaline Phosphatase 175 H Total Creatine Kinase 260 H CK-MB (CK-2) 4.4 H CK-MB (CK-2) Rel Index 1.6 Troponin T 0.044 H NT-Pro-B Natriuret Pep 9813 H Total Protein 7.6 Albumin 3.4 L Albumin/Globulin Ratio 0.8 Triglycerides 115 Cholesterol 157 LDL Cholesterol Direct 64 HDL Cholesterol 70 H Cholesterol/HDL Ratio 2.24 Urine Color Urine Turbidity Urine pH Ur Specific Upper Tract Urine Protein Urine Glucose (UA) Urine Ketones Urine Blood Urine Nitrite Urine Bilirubin Urine Urobilinogen Ur Leukocyte Esterase Urine WBC (Auto) Urine RBC (Auto) U Epithel Cells (Auto) Urine Bacteria (Auto) Blood Type Antibody Screen 01/30/17 01/30/17 01/30/17 12:10 12:27 12:37 WBC RBC Hgb Hct MCV MCH MCHC RDW Plt Count Eos % (Auto) Add Manual Diff Total Counted Seg Neuts % (Manual) Band Neutrophils % Lymphocytes % (Manual) Reactive Lymphs % (Man) Monocytes % (Manual) Eosinophils % (Manual) Basophils % (Manual) Metamyelocytes % Myelocytes % Promyelocytes % Blast Cells % Nucleated RBC % Seg Neutrophils # Man Band Neutrophils # Lymphocytes # (Manual) Abs React Lymphs (Man) Monocytes # (Manual) Eosinophils # (Manual) Basophils # (Manual) Metamyelocytes # Myelocytes # Promyelocytes # Blast Cells # WBC Morphology Hypersegmented Neuts Hyposegmented Neuts Hypogranular Neuts Smudge Cells Toxic Granulation Toxic Vacuolation Dohle Bodies Pelger-Huet Anomaly Robert Rods Platelet Estimate Clumped Platelets Plt Clumps, EDTA Large Platelets Giant Platelets Platelet Satelliting Plt Morphology Comment RBC Morphology Dimorphic RBCs Polychromasia Hypochromasia Poikilocytosis Anisocytosis Microcytosis Macrocytosis Spherocytes Pappenheimer Bodies Sickle Cells Target Cells Tear Drop Cells Ovalocytes Helmet Cells [place] Bodies Bracey Rings Naselle Cells Bite Cells Crenated Cell Elliptocytes Acanthocytes (Spur) Rouleaux Hemoglobin C Crystals Schistocytes Malaria parasites Patrice Bodies Hem Pathologist Commnt PT INR APTT D-Dimer POC ABG pH 7.262 L POC ABG pCO2 49.7 H POC ABG pO2 220 H POC ABG HCO3 22.4 POC ABG Total CO2 24 POC ABG O2 Sat 100 POC ABG Base Excess -5 VBG pH 7.104 L* FiO2 50 Sodium Potassium Chloride Carbon Dioxide Anion Gap BUN Creatinine Estimated GFR BUN/Creatinine Ratio Glucose Ketones Quantitative Calcium Magnesium Total Bilirubin Direct Bilirubin AST ALT Alkaline Phosphatase Total Creatine Kinase CK-MB (CK-2) CK-MB (CK-2) Rel Index Troponin T NT-Pro-B Natriuret Pep Total Protein Albumin Albumin/Globulin Ratio Triglycerides Cholesterol LDL Cholesterol Direct HDL Cholesterol Cholesterol/HDL Ratio Urine Color Yellow Urine Turbidity Slightly-cloudy Urine pH 5.0 Ur Specific Upper Tract 1.014 Urine Protein >500 Urine Glucose (UA) 50 Urine Ketones Neg Urine Blood Neg Urine Nitrite Neg Urine Bilirubin Neg Urine Urobilinogen < 2.0 Ur Leukocyte Esterase Sm Urine WBC (Auto) 24.0 H Urine RBC (Auto) 5.0 U Epithel Cells (Auto) < 1.0 Urine Bacteria (Auto) 2+ Blood Type Antibody Screen 01/30/17 15:41 WBC RBC Hgb Hct MCV MCH MCHC RDW Plt Count Eos % (Auto) Add Manual Diff Total Counted Seg Neuts % (Manual) Band Neutrophils % Lymphocytes % (Manual) Reactive Lymphs % (Man) Monocytes % (Manual) Eosinophils % (Manual) Basophils % (Manual) Metamyelocytes % Myelocytes % Promyelocytes % Blast Cells % Nucleated RBC % Seg Neutrophils # Man Band Neutrophils # Lymphocytes # (Manual) Abs React Lymphs (Man) Monocytes # (Manual) Eosinophils # (Manual) Basophils # (Manual) Metamyelocytes # Myelocytes # Promyelocytes # Blast Cells # WBC Morphology Hypersegmented Neuts Hyposegmented Neuts Hypogranular Neuts Smudge Cells Toxic Granulation Toxic Vacuolation Dohle Bodies Pelger-Huet Anomaly Robert Rods Platelet Estimate Clumped Platelets Plt Clumps, EDTA Large Platelets Giant Platelets Platelet Satelliting Plt Morphology Comment RBC Morphology Dimorphic RBCs Polychromasia Hypochromasia Poikilocytosis Anisocytosis Microcytosis Macrocytosis Spherocytes Pappenheimer Bodies Sickle Cells Target Cells Tear Drop Cells Ovalocytes Helmet Cells [place] Bodies Bracey Rings Naselle Cells Bite Cells Crenated Cell Elliptocytes Acanthocytes (Spur) Rouleaux Hemoglobin C Crystals Schistocytes Malaria parasites Patrice Bodies Hem Pathologist Commnt PT INR APTT D-Dimer POC ABG pH POC ABG pCO2 POC ABG pO2 POC ABG HCO3 POC ABG Total CO2 POC ABG O2 Sat POC ABG Base Excess VBG pH FiO2 Sodium Potassium Chloride Carbon Dioxide Anion Gap BUN Creatinine Estimated GFR BUN/Creatinine Ratio Glucose Ketones Quantitative Calcium Magnesium Total Bilirubin Direct Bilirubin AST ALT Alkaline Phosphatase Total Creatine Kinase CK-MB (CK-2) CK-MB (CK-2) Rel Index Troponin T 0.022 NT-Pro-B Natriuret Pep Total Protein Albumin Albumin/Globulin Ratio Triglycerides Cholesterol LDL Cholesterol Direct HDL Cholesterol Cholesterol/HDL Ratio Urine Color Urine Turbidity Urine pH Ur Specific Upper Tract Urine Protein Urine Glucose (UA) Urine Ketones Urine Blood Urine Nitrite Urine Bilirubin Urine Urobilinogen Ur Leukocyte Esterase Urine WBC (Auto) Urine RBC (Auto) U Epithel Cells (Auto) Urine Bacteria (Auto) Blood Type Antibody Screen Laboratory Results - last 24 hr 01/30/17 01/30/17 01/30/17 12:09 12:10 12:10 WBC 5.3 RBC 4.06 Hgb 11.6 Hct 37.7 MCV 93 MCH 29 MCHC 31 RDW 16.0 H Plt Count 287 Eos % (Auto) Office Correspondent Add Manual Diff Complete Total Counted 100 Seg Neuts % (Manual) 34.0 L Band Neutrophils % 0 Lymphocytes % (Manual) 29.0 Reactive Lymphs % (Man) 0 Monocytes % (Manual) 6.0 Eosinophils % (Manual) 30.0 H Basophils % (Manual) 1.0 Metamyelocytes % 0 Myelocytes % 0 Promyelocytes % 0 Blast Cells % 0 Nucleated RBC % Not Reportable Seg Neutrophils # Man 1.8 Band Neutrophils # 0.0 Lymphocytes # (Manual) 1.5 Abs React Lymphs (Man) 0.0 Monocytes # (Manual) 0.3 Eosinophils # (Manual) 1.6 H Basophils # (Manual) 0.1 Metamyelocytes # 0.0 Myelocytes # 0.0 Promyelocytes # 0.0 Blast Cells # 0.0 WBC Morphology Not Reportable Hypersegmented Neuts Not Reportable Hyposegmented Neuts Not Reportable Hypogranular Neuts Not Reportable Smudge Cells Not Reportable Toxic Granulation Not Reportable Toxic Vacuolation Not Reportable Dohle Bodies Not Reportable Pelger-Huet Anomaly Not Reportable Robert Rods Not Reportable Platelet Estimate Appears normal Clumped Platelets Not Reportable Plt Clumps, EDTA Not Reportable Large Platelets Not Reportable Giant Platelets Not Reportable Platelet Satelliting Not Reportable Plt Morphology Comment Not Reportable RBC Morphology Not Reportable Dimorphic RBCs Not Reportable Polychromasia Not Reportable Hypochromasia Not Reportable Poikilocytosis Not Reportable Anisocytosis 1+ Microcytosis Not Reportable Macrocytosis Not Reportable Spherocytes Not Reportable Pappenheimer Bodies Not Reportable Sickle Cells Not Reportable Target Cells Not Reportable Tear Drop Cells Not Reportable Ovalocytes Few Helmet Cells Not Reportable [place] Bodies Not Reportable Bracey Rings Not Reportable Naselle Cells Not Reportable Bite Cells Not Reportable Crenated Cell Not Reportable Elliptocytes Not Reportable Acanthocytes (Spur) Not Reportable Rouleaux Not Reportable Hemoglobin C Crystals Not Reportable Schistocytes Not Reportable Malaria parasites Not Reportable Patrice Bodies Not Reportable Hem Pathologist Commnt No PT 13.7 INR 1.00 APTT 26.8 D-Dimer 1524.84 H POC ABG pH POC ABG pCO2 POC ABG pO2 POC ABG HCO3 POC ABG Total CO2 POC ABG O2 Sat POC ABG Base Excess VBG pH FiO2 Sodium Potassium Chloride Carbon Dioxide Anion Gap BUN Creatinine Estimated GFR BUN/Creatinine Ratio Glucose Ketones Quantitative Calcium Magnesium Total Bilirubin Direct Bilirubin AST ALT Alkaline Phosphatase Total Creatine Kinase CK-MB (CK-2) CK-MB (CK-2) Rel Index Troponin T NT-Pro-B Natriuret Pep Total Protein Albumin Albumin/Globulin Ratio Triglycerides Cholesterol LDL Cholesterol Direct HDL Cholesterol Cholesterol/HDL Ratio Urine Color Urine Turbidity Urine pH Ur Specific Upper Tract Urine Protein Urine Glucose (UA) Urine Ketones Urine Blood Urine Nitrite Urine Bilirubin Urine Urobilinogen Ur Leukocyte Esterase Urine WBC (Auto) Urine RBC (Auto) U Epithel Cells (Auto) Urine Bacteria (Auto) Blood Type A POSITIVE Antibody Screen Negative 01/30/17 01/30/17 01/30/17 12:10 12:10 12:10 WBC RBC Hgb Hct MCV MCH MCHC RDW Plt Count Eos % (Auto) Add Manual Diff Total Counted Seg Neuts % (Manual) Band Neutrophils % Lymphocytes % (Manual) Reactive Lymphs % (Man) Monocytes % (Manual) Eosinophils % (Manual) Basophils % (Manual) Metamyelocytes % Myelocytes % Promyelocytes % Blast Cells % Nucleated RBC % Seg Neutrophils # Man Band Neutrophils # Lymphocytes # (Manual) Abs React Lymphs (Man) Monocytes # (Manual) Eosinophils # (Manual) Basophils # (Manual) Metamyelocytes # Myelocytes # Promyelocytes # Blast Cells # WBC Morphology Hypersegmented Neuts Hyposegmented Neuts Hypogranular Neuts Smudge Cells Toxic Granulation Toxic Vacuolation Dohle Bodies Pelger-Huet Anomaly Robert Rods Platelet Estimate Clumped Platelets Plt Clumps, EDTA Large Platelets Giant Platelets Platelet Satelliting Plt Morphology Comment RBC Morphology Dimorphic RBCs Polychromasia Hypochromasia Poikilocytosis Anisocytosis Microcytosis Macrocytosis Spherocytes Pappenheimer Bodies Sickle Cells Target Cells Tear Drop Cells Ovalocytes Helmet Cells [place] Bodies Bracey Rings Naselle Cells Bite Cells Crenated Cell Elliptocytes Acanthocytes (Spur) Rouleaux Hemoglobin C Crystals Schistocytes Malaria parasites Patrice Bodies Hem Pathologist Commnt PT INR APTT D-Dimer POC ABG pH POC ABG pCO2 POC ABG pO2 POC ABG HCO3 POC ABG Total CO2 POC ABG O2 Sat POC ABG Base Excess VBG pH FiO2 Sodium 139 Potassium 5.0 Chloride 102.6 Carbon Dioxide 23 Anion Gap 18 BUN 21 H Creatinine 3.1 H Estimated GFR 18 BUN/Creatinine Ratio 7 Glucose 276 H Ketones Quantitative Negative Calcium 9.6 Magnesium 2.80 H Total Bilirubin 0.20 Direct Bilirubin < 0.2 AST 33 ALT 26 Alkaline Phosphatase 175 H Total Creatine Kinase 260 H CK-MB (CK-2) 4.4 H CK-MB (CK-2) Rel Index 1.6 Troponin T 0.044 H NT-Pro-B Natriuret Pep 9813 H Total Protein 7.6 Albumin 3.4 L Albumin/Globulin Ratio 0.8 Triglycerides 115 Cholesterol 157 LDL Cholesterol Direct 64 HDL Cholesterol 70 H Cholesterol/HDL Ratio 2.24 Urine Color Urine Turbidity Urine pH Ur Specific Upper Tract Urine Protein Urine Glucose (UA) Urine Ketones Urine Blood Urine Nitrite Urine Bilirubin Urine Urobilinogen Ur Leukocyte Esterase Urine WBC (Auto) Urine RBC (Auto) U Epithel Cells (Auto) Urine Bacteria (Auto) Blood Type Antibody Screen 01/30/17 01/30/17 01/30/17 12:10 12:27 12:37 WBC RBC Hgb Hct MCV MCH MCHC RDW Plt Count Eos % (Auto) Add Manual Diff Total Counted Seg Neuts % (Manual) Band Neutrophils % Lymphocytes % (Manual) Reactive Lymphs % (Man) Monocytes % (Manual) Eosinophils % (Manual) Basophils % (Manual) Metamyelocytes % Myelocytes % Promyelocytes % Blast Cells % Nucleated RBC % Seg Neutrophils # Man Band Neutrophils # Lymphocytes # (Manual) Abs React Lymphs (Man) Monocytes # (Manual) Eosinophils # (Manual) Basophils # (Manual) Metamyelocytes # Myelocytes # Promyelocytes # Blast Cells # WBC Morphology Hypersegmented Neuts Hyposegmented Neuts Hypogranular Neuts Smudge Cells Toxic Granulation Toxic Vacuolation Dohle Bodies Pelger-Huet Anomaly Robert Rods Platelet Estimate Clumped Platelets Plt Clumps, EDTA Large Platelets Giant Platelets Platelet Satelliting Plt Morphology Comment RBC Morphology Dimorphic RBCs Polychromasia Hypochromasia Poikilocytosis Anisocytosis Microcytosis Macrocytosis Spherocytes Pappenheimer Bodies Sickle Cells Target Cells Tear Drop Cells Ovalocytes Helmet Cells [place] Bodies Bracey Rings Naselle Cells Bite Cells Crenated Cell Elliptocytes Acanthocytes (Spur) Rouleaux Hemoglobin C Crystals Schistocytes Malaria parasites Patrice Bodies Hem Pathologist Commnt PT INR APTT D-Dimer POC ABG pH 7.262 L POC ABG pCO2 49.7 H POC ABG pO2 220 H POC ABG HCO3 22.4 POC ABG Total CO2 24 POC ABG O2 Sat 100 POC ABG Base Excess -5 VBG pH 7.104 L* FiO2 50 Sodium Potassium Chloride Carbon Dioxide Anion Gap BUN Creatinine Estimated GFR BUN/Creatinine Ratio Glucose Ketones Quantitative Calcium Magnesium Total Bilirubin Direct Bilirubin AST ALT Alkaline Phosphatase Total Creatine Kinase CK-MB (CK-2) CK-MB (CK-2) Rel Index Troponin T NT-Pro-B Natriuret Pep Total Protein Albumin Albumin/Globulin Ratio Triglycerides Cholesterol LDL Cholesterol Direct HDL Cholesterol Cholesterol/HDL Ratio Urine Color Yellow Urine Turbidity Slightly-cloudy Urine pH 5.0 Ur Specific Upper Tract 1.014 Urine Protein >500 Urine Glucose (UA) 50 Urine Ketones Neg Urine Blood Neg Urine Nitrite Neg Urine Bilirubin Neg Urine Urobilinogen < 2.0 Ur Leukocyte Esterase Sm Urine WBC (Auto) 24.0 H Urine RBC (Auto) 5.0 U Epithel Cells (Auto) < 1.0 Urine Bacteria (Auto) 2+ Blood Type Antibody Screen 01/30/17 15:41 WBC RBC Hgb Hct MCV MCH MCHC RDW Plt Count Eos % (Auto) Add Manual Diff Total Counted Seg Neuts % (Manual) Band Neutrophils % Lymphocytes % (Manual) Reactive Lymphs % (Man) Monocytes % (Manual) Eosinophils % (Manual) Basophils % (Manual) Metamyelocytes % Myelocytes % Promyelocytes % Blast Cells % Nucleated RBC % Seg Neutrophils # Man Band Neutrophils # Lymphocytes # (Manual) Abs React Lymphs (Man) Monocytes # (Manual) Eosinophils # (Manual) Basophils # (Manual) Metamyelocytes # Myelocytes # Promyelocytes # Blast Cells # WBC Morphology Hypersegmented Neuts Hyposegmented Neuts Hypogranular Neuts Smudge Cells Toxic Granulation Toxic Vacuolation Dohle Bodies Pelger-Huet Anomaly Robert Rods Platelet Estimate Clumped Platelets Plt Clumps, EDTA Large Platelets Giant Platelets Platelet Satelliting Plt Morphology Comment RBC Morphology Dimorphic RBCs Polychromasia Hypochromasia Poikilocytosis Anisocytosis Microcytosis Macrocytosis Spherocytes Pappenheimer Bodies Sickle Cells Target Cells Tear Drop Cells Ovalocytes Helmet Cells [place] Bodies Bracey Rings Naselle Cells Bite Cells Crenated Cell Elliptocytes Acanthocytes (Spur) Rouleaux Hemoglobin C Crystals Schistocytes Malaria parasites Patrice Bodies Hem Pathologist Commnt PT INR APTT D-Dimer POC ABG pH POC ABG pCO2 POC ABG pO2 POC ABG HCO3 POC ABG Total CO2 POC ABG O2 Sat POC ABG Base Excess VBG pH FiO2 Sodium Potassium Chloride Carbon Dioxide Anion Gap BUN Creatinine Estimated GFR BUN/Creatinine Ratio Glucose Ketones Quantitative Calcium Magnesium Total Bilirubin Direct Bilirubin AST ALT Alkaline Phosphatase Total Creatine Kinase CK-MB (CK-2) CK-MB (CK-2) Rel Index Troponin T 0.022 NT-Pro-B Natriuret Pep Total Protein Albumin Albumin/Globulin Ratio Triglycerides Cholesterol LDL Cholesterol Direct HDL Cholesterol Cholesterol/HDL Ratio Urine Color Urine Turbidity Urine pH Ur Specific Upper Tract Urine Protein Urine Glucose (UA) Urine Ketones Urine Blood Urine Nitrite Urine Bilirubin Urine Urobilinogen Ur Leukocyte Esterase Urine WBC (Auto) Urine RBC (Auto) U Epithel Cells (Auto) Urine Bacteria (Auto) Blood Type Antibody Screen - EKG Data -: EKG Interpreted by Me EKG shows normal: sinus rhythm Rate: tachycardia - EKG Data Interpretation: nonspecific ST-T wave maria guadalupe - Radiology Data interpreted by me: Chest x-ray is suggestive of right sided infiltrate. Critical Care Time: Yes Critical care time in (mins) excluding proc time.: 60 Critical care attestation.: If time is entered above; I have spent that time in minutes in the direct care of this critically ill patient, excluding procedure time. ED Disposition Clinical Impression: COPD exacerbation Respiratory failure Qualifiers: Chronicity: acute Respiratory failure complication: hypoxia Qualified Code(s): J96.01 - Acute respiratory failure with hypoxia Cardiomyopathy Qualifiers: Cardiomyopathy type: unspecified Qualified Code(s): I42.9 - Cardiomyopathy, unspecified Renal failure Qualifiers: Renal failure chronicity: acute Acute renal failure type: unspecified Qualified Code(s): N17.9 - Acute kidney failure, unspecified UTI (urinary tract infection) Qualifiers: Urinary tract infection type: site unspecified Hematuria presence: without hematuria Qualified Code(s): N39.0 - Urinary tract infection, site not specified Disposition: OP ADMIT IP TO THIS HOSP Is pt being admited?: Yes Does the pt Need Aspirin: Yes Time of Disposition: 17:30
[2017-01-30] MEDS: ZOSYN/NS 2.25 GM/50ML 2.25 GM/50 ML BAG IV SCH (20:28)
[2017-01-30] MEDS ORDERED: KETALAR ONE (22:32)
[2017-01-30] MEDS ORDERED: QUELICIN ONE (22:32)
--- NOTE | 2017-01-31 01:48 | XRay Report ---
FINAL REPORT PROCEDURE: XR CHEST 1V AP TECHNIQUE: Chest radiograph anteroposterior view. CPT 95960 HISTORY: follow up respiratory failure COMPARISON: No prior studies are available for comparison. FINDINGS: Heart: The heart is borderline enlarged. Mediastinum/Vessels: Normal. Lungs/Pleural space: There is a right perihilar opacity which could be an infiltrate versus atelectasis. There are no effusions or pneumothoraces.. Bony thorax: No acute osseous abnormality. Life support devices: The endotracheal tube is in the mid trachea. The NG tube is in the stomach.. IMPRESSION: The heart is borderline enlarged. There is a right perihilar opacity which could be an infiltrate versus atelectasis. There are no effusions or pneumothoraces.. The endotracheal tube is in the mid trachea. The NG tube is in the stomach.. .
[2017-01-31] MEDS: ZOSYN/NS 2.25 GM/50ML 2.25 GM/50 ML BAG IV SCH ×2 (03:02→09:49)
[2017-01-31 04:41] LABS: ISTAT Base Excess -4; ISTAT HCO3 20.3; ISTAT PCO2 32.1 (35-45); ISTAT PH 7.408 (7.35-7.45); ISTAT PO2 104 (80-105); ISTAT SO2 98; ISTAT TCO2 21
[2017-01-31 05:04] LABS: Basophils % (Auto) 0.1 % (0.0-1.8); Hemoglobin 11.2 gm/dl (10.1-14.3); Mean Corpuscular HGB Conc 33 % (30-34); Mean Corpuscular Hemoglobin 30 pg (28-32); Mean Corpuscular Volume 91 fl (79-97); Platelet Count 240 K/mm3 (140-440); Red Blood Count 3.76 M/mm3 (3.65-5.03); Red Cell Distribution Width 16.2 % (13.2-15.2); White Blood Count 8.7 K/mm3 (4.5-11.0)
[2017-01-31 05:19] LABS: Calcium 10.5 mg/dL (8.4-10.2); Chloride 101.8 mmol/L (98-107); Potassium 5.3 mmol/L (3.6-5.0)
[2017-01-31] MEDS ORDERED: SIMPLE SYRUP FEEDTUBE PRN ×2 (09:48)
[2017-01-31] MEDS ORDERED: SODIUM BICARBONATE FEEDTUBE PRN (09:48)
[2017-01-31] MEDS ORDERED: PANCREAZE DR 10,500 UNIT FEEDTUBE PRN (09:48)
[2017-01-31] MEDS: HEPARIN SUB-Q SCH ×3 (09:49→22:42)
[2017-01-31] MEDS: PEPCID IV SCH (09:49)
--- NOTE | 2017-01-31 11:13 | Progress Note ---
Assessment and Plan Acute Hypoxemic Hypercapnic Resp Failure AECOPD Multifocal Pneumonia CMOP Obesity GEORGE Diabetes type II - trial of extubation - BIPAP scheduled qhs with prn daytime use - continue supplemental oxygen to keep sats > 90% - continue bronchodilators and pulmonary hygeine per RT - complete VTE w/up - continue empiric AB's - begin seroquel for likely post extubation agitation vs delirium - continue systemic steroids - continue glycemic control with SSI for target BG </= 180 - continue GI & VTE prophylaxis - follow 2D ECHO - continue other care per attending / other consultants ....34' CCT Subjective Date of service: 01/31/17 Principal diagnosis: Acute Hypoxemic Hypercapnic Resp Failure Interval history: Patient is seen today for: Acute Hypoxemic Hypercapnic Resp Failure; Multifocal Pneumonia Seen and examined at bedside; 24hour events reviewed; nursing and respiratory care staff consulted; no adverse overnight events reported to me; remains on MVS ; tolerating PSV trial well so far; agitated intermittently but able to verbally re-direct; denies acute chest pains; No N/V/F/C Objective Vital Signs - 12hr 01/30/17 01/30/17 01/30/17 23:37 23:41 23:51 Temperature 99.2 F Pulse Rate 97 H 97 H Pulse Rate [ From Monitor] Respiratory 22 22 Rate Blood Pressure 151/85 151/85 O2 Sat by Pulse 100 97 Oximetry 01/31/17 01/31/17 01/31/17 00:00 00:01 00:11 Temperature Pulse Rate 95 H 96 H Pulse Rate [ From Monitor] Respiratory 22 22 Rate Blood Pressure 156/88 156/88 O2 Sat by Pulse 100 96 100 Oximetry 01/31/17 01/31/17 01/31/17 00:21 00:31 00:41 Temperature Pulse Rate 97 H 97 H 107 H Pulse Rate [ From Monitor] Respiratory 22 22 18 Rate Blood Pressure 151/85 154/86 154/86 O2 Sat by Pulse 100 100 99 Oximetry 01/31/17 01/31/17 01/31/17 00:51 01:01 01:11 Temperature Pulse Rate 110 H 112 H 110 H Pulse Rate [ From Monitor] Respiratory 22 22 22 Rate Blood Pressure 154/86 176/100 176/100 O2 Sat by Pulse 100 98 97 Oximetry 01/31/17 01/31/17 01/31/17 01:21 01:31 01:41 Temperature Pulse Rate 109 H 106 H 106 H Pulse Rate [ From Monitor] Respiratory 22 22 22 Rate Blood Pressure 154/86 154/86 154/86 O2 Sat by Pulse 99 99 98 Oximetry 01/31/17 01/31/17 01/31/17 01:51 01:56 02:01 Temperature Pulse Rate 106 H 104 H 105 H Pulse Rate [ From Monitor] Respiratory 22 22 Rate Blood Pressure 154/86 177/76 O2 Sat by Pulse 99 98 98 Oximetry 01/31/17 01/31/17 01/31/17 02:11 02:21 02:31 Temperature Pulse Rate 105 H 103 H 102 H Pulse Rate [ From Monitor] Respiratory 22 22 22 Rate Blood Pressure 177/76 177/76 165/76 O2 Sat by Pulse 98 98 99 Oximetry 01/31/17 01/31/17 01/31/17 02:41 02:51 03:01 Temperature Pulse Rate 102 H 101 H 100 H Pulse Rate [ From Monitor] Respiratory 22 22 22 Rate Blood Pressure 165/76 165/76 142/80 O2 Sat by Pulse 99 99 95 Oximetry 01/31/17 01/31/17 01/31/17 03:11 03:13 03:21 Temperature 98.8 F Pulse Rate 100 H 99 H Pulse Rate [ From Monitor] Respiratory 22 22 Rate Blood Pressure 142/80 165/76 O2 Sat by Pulse 99 98 Oximetry 01/31/17 01/31/17 01/31/17 03:31 03:41 03:51 Temperature Pulse Rate 100 H 107 H 107 H Pulse Rate [ From Monitor] Respiratory 22 21 19 Rate Blood Pressure 148/81 148/81 148/81 O2 Sat by Pulse 99 100 98 Oximetry 01/31/17 01/31/17 01/31/17 03:52 03:56 04:01 Temperature Pulse Rate 104 H 104 H Pulse Rate [ From Monitor] Respiratory 20 Rate Blood Pressure 148/81 148/81 O2 Sat by Pulse 99 99 99 Oximetry 01/31/17 01/31/17 01/31/17 04:11 04:21 04:31 Temperature Pulse Rate 108 H 108 H 110 H Pulse Rate [ From Monitor] Respiratory 20 20 20 Rate Blood Pressure 148/81 148/81 196/94 O2 Sat by Pulse 99 95 100 Oximetry 01/31/17 01/31/17 01/31/17 04:41 04:50 05:01 Temperature Pulse Rate 107 H 106 H 105 H Pulse Rate [ From Monitor] Respiratory 20 20 20 Rate Blood Pressure 196/94 165/76 151/79 O2 Sat by Pulse 99 99 98 Oximetry 01/31/17 01/31/17 01/31/17 05:11 05:21 05:30 Temperature Pulse Rate 103 H 102 H 102 H Pulse Rate [ From Monitor] Respiratory 20 20 20 Rate Blood Pressure 151/79 196/94 149/76 O2 Sat by Pulse 98 98 98 Oximetry 01/31/17 01/31/17 01/31/17 05:41 05:51 06:01 Temperature Pulse Rate 101 H 100 H 98 H Pulse Rate [ From Monitor] Respiratory 20 20 20 Rate Blood Pressure 149/76 149/76 140/72 O2 Sat by Pulse 95 96 98 Oximetry 01/31/17 01/31/17 01/31/17 06:11 06:21 06:31 Temperature Pulse Rate 99 H 99 H 106 H Pulse Rate [ From Monitor] Respiratory 20 20 19 Rate Blood Pressure 140/72 140/72 140/72 O2 Sat by Pulse 98 98 98 Oximetry 01/31/17 01/31/17 01/31/17 06:41 06:51 07:01 Temperature Pulse Rate 103 H 104 H 102 H Pulse Rate [ From Monitor] Respiratory 20 14 20 Rate Blood Pressure 140/72 140/72 140/72 O2 Sat by Pulse 99 98 99 Oximetry 01/31/17 01/31/17 01/31/17 07:11 07:21 07:30 Temperature Pulse Rate 100 H 100 H 100 H Pulse Rate [ From Monitor] Respiratory 20 20 20 Rate Blood Pressure 140/72 143/77 139/79 O2 Sat by Pulse 97 97 96 Oximetry 01/31/17 01/31/17 01/31/17 07:41 07:51 07:56 Temperature 98.0 F Pulse Rate 100 H 99 H Pulse Rate [ From Monitor] Respiratory 20 20 Rate Blood Pressure 139/79 139/79 O2 Sat by Pulse 98 97 Oximetry 01/31/17 01/31/17 01/31/17 08:00 08:11 08:20 Temperature Pulse Rate 98 H 102 H 111 H Pulse Rate [ 100 H From Monitor] Respiratory 20 18 16 Rate Blood Pressure 137/74 137/74 189/92 O2 Sat by Pulse 99 93 99 Oximetry 01/31/17 01/31/1701/31/17 08:21 08:31 08:41 Temperature Pulse Rate 106 H 107 H 108 H Pulse Rate [ From Monitor] Respiratory 20 20 17 Rate Blood Pressure 137/74 174/80 174/80 O2 Sat by Pulse 97 97 97 Oximetry 01/31/17 01/31/17 01/31/17 08:51 09:01 09:11 Temperature Pulse Rate 109 H 111 H 110 H Pulse Rate [ From Monitor] Respiratory 12 20 12 Rate Blood Pressure 174/80 186/86 186/86 O2 Sat by Pulse 97 98 94 Oximetry 01/31/17 01/31/17 01/31/17 09:21 09:31 09:41 Temperature Pulse Rate 112 H 113 H 110 H Pulse Rate [ From Monitor] Respiratory 16 12 9 L Rate Blood Pressure 186/86 171/96 171/96 O2 Sat by Pulse 95 96 94 Oximetry 01/31/17 01/31/17 01/31/17 09:51 10:00 10:01 Temperature Pulse Rate 109 H 111 H 111 H Pulse Rate [ From Monitor] Respiratory 19 16 Rate Blood Pressure 171/96 189/92 O2 Sat by Pulse 98 96 Oximetry 01/31/17 01/31/17 01/31/17 10:11 10:21 10:31 Temperature Pulse Rate 114 H 112 H 112 H Pulse Rate [ From Monitor] Respiratory 14 17 9 L Rate Blood Pressure 189/92 189/92 181/86 O2 Sat by Pulse 97 98 99 Oximetry 01/31/17 01/31/17 01/31/17 10:41 10:51 11:01 Temperature Pulse Rate 111 H 113 H 110 H Pulse Rate [ From Monitor] Respiratory 13 14 9 L Rate Blood Pressure 181/86 181/86 168/87 O2 Sat by Pulse 98 96 97 Oximetry Constitutional: alert, agitated (re-directable), other (orally intubated to MVS) Eyes: non-icteric ENT: oropharynx moist Neck: supple, no lymphadenopathy, no JVD, other (no thyromegaly) Effort: mildly labored Ascultation: Bilateral: diminished breath sounds, rhonchi Percussion: Bilateral: not dull Cardiovascular: regular rate and rhythm, other (S1,S2, No murmurs, gallops or rubs) Gastrointestinal: normoactive bowel sounds, soft, non-tender, non-distended, other (No palpable HSM) Integumentary: normal Extremities: no cyanosis, no edema, pulses normal, other (plaque like, pigmented lesions on the anterior tibial surfaces bilaterally) Neurologic: non-focal exam (grossly), pupils equal and round, motor strength normal and Psychiatric: anxious, other (suspect bipolar / psych disorder) CBC and BMP: 02/02/17 05:16 02/03/17 10:34 ABG, PT/INR, D-dimer: ABG POC ABG pH 7.408 (7.35-7.45) 01/31/17 03:58 POC ABG pCO2 32.1 (35-45) L 01/31/17 03:58 POC ABG pO2 104 (80-105) 01/31/17 03:58 POC ABG HCO3 20.3 01/31/17 03:58 POC ABG Total CO2 21 01/31/17 03:58 POC ABG O2 Sat 98 01/31/17 03:58 PT/INR, D-dimer PT 13.7 Sec. (12.2-14.9) 01/30/17 12:10 INR 1.00 (0.87-1.13) 01/30/17 12:10 D-Dimer 1524.84 ng/mlDDU (0-234) H 01/30/17 12:10 Abnormal lab findings: Abnormal Labs 01/30/17 01/30/17 01/30/17 12:10 12:10 12:10 RDW 16.0 H Lymph % (Auto) Lymph # Seg Neutrophils % Seg Neuts % (Manual) 34.0 L Eosinophils % (Manual) 30.0 H Eosinophils # (Manual) 1.6 H D-Dimer 1524.84 H POC ABG pH POC ABG pCO2 POC ABG pO2 VBG pH Potassium Carbon Dioxide BUN 21 H Creatinine 3.1 H Glucose 276 H Calcium Magnesium 2.80 H Alkaline Phosphatase Total Creatine Kinase 260 H CK-MB (CK-2) 4.4 H Troponin T 0.044 H NT-Pro-B Natriuret Pep Albumin HDL Cholesterol 70 H Urine WBC (Auto) 01/30/17 01/30/17 01/30/17 12:10 12:10 12:27 RDW Lymph % (Auto) Lymph # Seg Neutrophils % Seg Neuts % (Manual) Eosinophils % (Manual) Eosinophils # (Manual) D-Dimer POC ABG pH 7.262 L POC ABG pCO2 49.7 H POC ABG pO2 220 H VBG pH 7.104 L* Potassium Carbon Dioxide BUN Creatinine Glucose Calcium Magnesium Alkaline Phosphatase 175 H Total Creatine Kinase CK-MB (CK-2) Troponin T NT-Pro-B Natriuret Pep 9813 H Albumin 3.4 L HDL Cholesterol Urine WBC (Auto) 01/30/17 01/31/17 01/31/17 12:37 03:58 04:27 RDW 16.2 H Lymph % (Auto) 8.6 L Lymph # 0.7 L Seg Neutrophils % 85.7 H Seg Neuts % (Manual) Eosinophils % (Manual) Eosinophils # (Manual) D-Dimer POC ABG pH POC ABG pCO2 32.1 L POC ABG pO2 VBG pH Potassium Carbon Dioxide BUN Creatinine Glucose Calcium Magnesium Alkaline Phosphatase Total Creatine Kinase CK-MB (CK-2) Troponin T NT-Pro-B Natriuret Pep Albumin HDL Cholesterol Urine WBC (Auto) 24.0 H 01/31/17 04:27 RDW Lymph % (Auto) Lymph # Seg Neutrophils % Seg Neuts % (Manual) Eosinophils % (Manual) Eosinophils # (Manual) D-Dimer POC ABG pH POC ABG pCO2 POC ABG pO2 VBG pH Potassium 5.3 H Carbon Dioxide 20 L BUN 30 H Creatinine 3.9 H Glucose 164 H Calcium 10.5 H Magnesium Alkaline Phosphatase Total Creatine Kinase CK-MB (CK-2) Troponin T NT-Pro-B Natriuret Pep Albumin HDL Cholesterol Urine WBC (Auto) Chest x-ray: image reviewed (rotated to right; small volume right midlung atelectasis; increased interstitial markings) Allied health notes reviewed: nursing
[2017-01-31 13:32] LABS: ISTAT Base Excess -5; ISTAT HCO3 22.1; ISTAT PCO2 46.1 (35-45); ISTAT PH 7.288 (7.35-7.45); ISTAT PO2 101 (80-105); ISTAT SO2 97; ISTAT TCO2 23
[2017-01-31] MEDS ORDERED: KIONEX PO PRN (13:57)
[2017-01-31] MEDS: HALFPRIN EC PO SCH (15:42)
[2017-01-31] MEDS: APRESOLINE PO SCH ×2 (15:43→20:19)
[2017-01-31] MEDS: MORPHINE IV PRN (15:59)
[2017-01-31] MEDS ORDERED: ASPIRIN PR ONE (17:30)
--- NOTE | 2017-01-31 22:46 | Consultation ---
History of Present Illness - History of Present Illness Thank you for the consultation Patient was evaluated today at around 4 PM in the afternoon met with her Also discussed with ICU nurse about the care plan Source of information; patient himself , her as well as current records were also reviewed History of presenting illness; Patient is a pleasant 66-year-old -Citizen Of [place] female who has been admitted here with respiratory failure multifocal pneumonia. Patient just got extubated upon admission was noted to have a creatinine around 3.1 which has increased. Patient was last seen at [facility] approximately a month ago but does not remember having been told to have renal failure. Patient does have a history of long-standing diabetes, hypertension, obesity, poor lifestyle eating habits, she also does have history of long-standing use of nonsteroidal drug essentially all her life. she does not recall having any history of protein area , hematuria or kidney stones, hepatitis B C HIV or lupus Patient is currently nonoliguric mildly hyperkalemic She was also noted to have accelerated hypertension upon admission, has been diagnosed with COPD as well as cardiomyopathy Patient denies any complaints of nausea vomiting metallic taste at this time Past medical history is significant for hypertension Diabetes mellitus type 2 Obesity Chronic nonsteroidal medication use Allergies: Sulfa drugs Social history: denies any history of recreational drug substance abuse Family history: noncontributory elective disorder Review of system is positive for respiratory failure, uncontrolled hypertension cough cold congestion-like symptoms Complete review of systems obtained pertinent positive above other's review of systems negative Physical examination General: No acute distress HEENT: Oral mucosa moist no pharyngeal erythema no pallor or icterus no uremic order Neck: Supple no evidence of any thyromegaly trachea midline no JVD Chest: prolonged expiratory phase bilateral wheezes Heart: Regular rate and rhythm S1-S2 heard no S3-S4 Abdomen: Soft nontender no renal bruit no CVA tenderness no suprapubic fullness no organomegaly Extremity: Minimal edema dry skin no peripheral cyanosis pulses palpable Neurological: Alert awake follows command grossly nonfocal examination Back: Nontender thoracolumbar spine Musculoskeletal: No joint effusion noted Skin: No petechial rash/noted all the labs and imaging studies reviewed from this admission present in the chart Assessment and plan Assessment and plan Renal failure severe in a patient who has been admitted here with respiratory failure currently extubated unknown baseline creatinine patient was seen at [facility] approximately a month ago would like to obtain records discussed with ICU nurse to obtain labs There is no acute emergent indication for renal replacement therapy for now We will order workup for renal failure patient does have multiple risk factors for underlying chronic kidney disease including long-standing history of diabetes, hypertension, nonsteroidal medication use, poor diet lifestyle obesity etc. Admitted with respiratory failure right lung pneumonia required ventilatory support, proteinuria more than 500 mg in a random specimen suspicion for nephrotic range proteinuria Underlying cardiomyopathy, COPD exacerbation Diabetes mellitus type 2 poorly controlled with morbid obesity Mild hyperkalemia to monitor and follow Accelerated/ uncontrolled hypertension requires further workup Patient received adequate counseling and education regarding multiple renal related issues including her at the bedside We'll continue to follow and make recommendation from renal standpoint Counseled and educated to get further education from [employer] and related links, and if any further question to clarify with me renal prognosis remains guarded to poor at this time If you have any questions please feel free to contact me at [phone] Past History Past Medical History: hypertension, hyperlipidemia Past Surgical History: Other (unknown) Social history: smoking (never smoked) Family history: other (unknown) Medications and Allergies Allergies Allergy/AdvReac Type Severity Reaction Status Date / Time Sulfa (Sulfonamide Allergy Unknown Verified 01/30/17 17:09 Antibiotics) Home Medications Medication Instructions Recorded Confirmed Last Taken Type ALBUTEROL NEB's [Proventil] 2.5 mg IH PRN 01/31/17 01/31/17 Unknown History Albuterol Sulfate [Proventil Hfa] 6.7 gm IH PRN 01/31/17 01/31/17 Unknown History Aspirin EC [Aspirin Enteric Coated 81 mg PO QDAY 01/31/17 01/31/17 Unknown History TAB] ISOSORBIDE MONOnitrate [Imdur ER] 30 mg PO DAILY 01/31/17 01/31/17 Unknown History Metoprolol Xl [Metoprolol 100 mg PO QDAY 01/31/17 01/31/17 Unknown History SUCCINATE ER TAB] Rosuvastatin (Nf) [Crestor] 10 mg PO QDAY 01/31/17 01/31/17 Unknown History amLODIPine [Norvasc] 10 mg PO DAILY 01/31/17 01/31/17 Unknown History hydrALAZINE [Apresoline TAB] 100 mg PO TID 01/31/17 01/31/17 Unknown History Active Meds: Active Medications Al Hydrox/Mg Hydrox/Simethicone (Alum-Mag Hydrox-Simeth [id number]/5ml) 30 ml PO Q4H PRN PRN Reason: Indigestion Albuterol (Proventil) 2.5 mg IH Q3HRT PRN PRN Reason: Shortness Of Breath Amlodipine Besylate (Norvasc) 10 mg PO DAILY [facility] Aspirin (Halfprin Ec) 81 mg PO QDAY [facility] Last Admin: 01/31/17 15:42 Dose: 81 mg Atorvastatin Calcium (Lipitor) 20 mg PO QHS [facility] Last Admin: 01/31/17 22:42 Dose: 20 mg Bisacodyl (Dulcolax) 10 mg HI QDAY PRN PRN Reason: const[place]rel[place] [facility] [place] Famotidine (Pepcid) 20 mg IV DAILY [facility] Last Admin: 01/31/17 09:49 Dose: 20 mg Heparin Sodium (Porcine) (Heparin) 5,000 unit SUB-Q Q8HR [facility] Last Admin: 01/31/17 22:42 Dose: 5,000 unit Hydralazine HCl (Apresoline) 100 mg PO TID [facility] Last Admin: 01/31/17 20:19 Dose: 100 mg Hydrophilic Ointment (Vaseline Lip Therapy) 1 applic TP Q2HR PRN PRN Reason: Dry Lips Isosorbide Mononitrate (Imdur) 30 mg PO DAILY [facility] Levofloxacin (Levaquin) 500 mg PO Q48HR [facility] Stop: 02/09/17 10:01 Magnesium Hydroxide (Milk Of Magnesia) 30 ml PO Q4H PRN PRN Reason: Constipation Metoclopramide HCl (Reglan) 10 mg PO Q6H PRN PRN Reason: Nausea And Vomiting Metoprolol Succinate (Toprol Xl) 100 mg PO QDAY [facility] Morphine Sulfate (Morphine) 2 mg IV Q4H PRN PRN Reason: Pain, Moderate (4-6) Last Admin: 01/31/17 15:59 Dose: 2 mg Multi-Ingred Cream/Lotion/Oil/Oint (Artificial Tears Ophth Oint) 1 applic OU Q4HR PRN PRN Reason: Dry Eye(s) Ondansetron HCl (Zofran) 4 mg IV Q8H PRN PRN Reason: N/V unrelieved by Reglan Quetiapine Fumarate (Seroquel) 50 mg PO BID [facility] Last Admin: 01/31/17 22:45 Dose: Not Given Sodium Polystyrene Sulfonate (Kionex) 15 gm PO Q6HR PRN PRN Reason: Hyperkalemia Exam - Vital Signs Vital signs: Vital Signs Pulse Resp BP Pulse Ox 147 H 18 222/132 100 01/30/17 11:23 01/30/17 11:23 01/30/17 11:23 01/30/17 11:23 Results - Lab Results 01/31/17 04:27 01/31/17 04:27 Most recent lab results Calcium 10.5 mg/dL (8.4-10.2) H 01/31/17 04:27 Magnesium 2.80 mg/dL (1.7-2.3) H 01/30/17 12:10
--- NOTE | 2017-02-01 03:15 | XRay Report ---
FINAL REPORT PROCEDURE: XR CHEST 1V AP TECHNIQUE: Chest radiograph anteroposterior view. CPT 17880 HISTORY: follow up respiratory failure COMPARISON: 01/30/2017 FINDINGS: Heart: Heart is borderline enlarged. Mediastinum/Vessels: Normal. Lungs/Pleural space: There is fluid in the right minor fissure. There atelectasis of the right middle lobe. There is a right lower lobe infiltrate. Left lung is clear and expanded. There are no pneumothoraces.. Bony thorax: No acute osseous abnormality. Life support devices: None. IMPRESSION: Heart is borderline enlarged. There is fluid in the right minor fissure. There atelectasis of the right middle lobe. There is a right lower lobe infiltrate. Left lung is clear and expanded. There are no pneumothoraces.. .
[2017-02-01] MEDS: HEPARIN SUB-Q SCH ×3 (07:07→22:02)
[2017-02-01] MEDS: APRESOLINE PO SCH ×3 (07:07→19:29)
--- NOTE | 2017-02-01 07:22 | Progress Note ---
Assessment and Plan / Acute hypoxic Respiratory failure Patient intubated for airway protection and respiratory failure. Intensiivist consult placed Wean off vent support as tolerated today on cpap trial, possible extubation soon / Sepsis likely from RLL Pna and UTI will cont abx coverage, follow cx /Diabetes mellitus Cont SSI, Levemir added monitor BG /Cardiomyopathy ECHO ordered will follow result / RLL pneumonia Possible aspiration pneumonia IV Zosyn and Vancomycin for now /UTI (urinary tract infection) cont on Zosyn, follow cx /GEORGE (acute kidney injury) IV FLUIDS FOR NOw, consulted nephrology /hyperkalemia likely from renal failure kayexalate if k level >5.2 /DVT prophylaxis ON LOVENOX Brif history: Patient presented to the emergency department via EMS in respiratory distress. The patient was placed on BIPAP and was very effective initially but she became labored, desaturated and was intubated in the ER by the ER physician. She was placed on mechanical ventilatory support and admitted to CC unit. Physical exam: General appearance: agitated, other (orally intubated to MVS) Eyes: non-icteric ENT: oropharynx moist Neck: supple, no lymphadenopathy, no JVD Respiratory: Effort: mildly labored Ascultation: Right: rhonchi, Bilateral: diminished breath sounds, wheezes Cardiovascular: regular rate and rhythm, other (S1,S2, No murmurs, gallops or rubs) Gastrointestinal: normoactive bowel sounds, soft, non-tender, non-distended Integumentary: normal, warm, (plaque like, pigmented lesions on the anterior tibial surfaces bilaterally) Extremities: no cyanosis, no edema, pulses normal, Neuro: non-focal exam (patient was able to obey one step commands), pupils equal and round Subjective Date of service: 01/31/17 Principal diagnosis: Acute Hypoxemic Hypercapnic Resp Failure Interval history: Pt seen and examined on ventilator support updated family at bedside Objective - Constitutional Vitals: Vital Signs - 12hr 01/31/17 01/31/17 01/31/17 19:31 19:41 19:48 Temperature 98.5 F Pulse Rate 115 H 109 H Pulse Rate [ Bilateral Upper Lobe] Respiratory 16 17 Rate Respiratory Rate [Bilateral Upper Lobe] Blood Pressure 97/44 97/44 O2 Sat by Pulse 95 97 Oximetry 01/31/17 01/31/17 01/31/17 19:51 20:00 20:01 Temperature Pulse Rate 113 H 113 H Pulse Rate [ Bilateral Upper Lobe] Respiratory 15 18 16 Rate Respiratory Rate [Bilateral Upper Lobe] Blood Pressure 97/44 146/57 O2 Sat by Pulse 96 96 Oximetry 01/31/17 01/31/17 01/31/17 20:08 20:11 20:21 Temperature Pulse Rate 113 H 110 H Pulse Rate [ Bilateral Upper Lobe] Respiratory 16 17 Rate Respiratory Rate [Bilateral Upper Lobe] Blood Pressure 146/57 146/57 O2 Sat by Pulse 96 98 97 Oximetry 01/31/17 01/31/17 01/31/17 20:31 20:41 20:51 Temperature Pulse Rate 113 H 108 H 128 H Pulse Rate [ Bilateral Upper Lobe] Respiratory 15 16 19 Rate Respiratory Rate [Bilateral Upper Lobe] Blood Pressure 140/53 140/53 140/53 O2 Sat by Pulse 97 96 95 Oximetry 01/31/17 01/31/17 01/31/17 21:01 21:11 21:21 Temperature Pulse Rate 110 H 110 H 112 H Pulse Rate [ Bilateral Upper Lobe] Respiratory 16 16 20 Rate Respiratory Rate [Bilateral Upper Lobe] Blood Pressure 145/53 145/53 145/53 O2 Sat by Pulse 93 92 Oximetry 01/31/17 01/31/17 01/31/17 21:36 21:41 21:51 Temperature Pulse Rate 109 H 107 H 103 H Pulse Rate [ Bilateral Upper Lobe] Respiratory 19 15 14 Rate Respiratory Rate [Bilateral Upper Lobe] Blood Pressure 145/53 145/53 168/77 O2 Sat by Pulse 97 Oximetry 01/31/17 01/31/17 01/31/17 22:01 22:11 22:21 Temperature Pulse Rate 105 H 102 H 104 H Pulse Rate [ Bilateral Upper Lobe] Respiratory 13 19 14 Rate Respiratory Rate [Bilateral Upper Lobe] Blood Pressure 143/73 143/73 143/73 O2 Sat by Pulse 97 98 97 Oximetry 01/31/17 01/31/17 01/31/17 22:31 22:41 22:51 Temperature Pulse Rate 105 H 105 H 106 H Pulse Rate [ Bilateral Upper Lobe] Respiratory 17 19 14 Rate Respiratory Rate [Bilateral Upper Lobe] Blood Pressure 154/73 154/73 154/73 O2 Sat by Pulse 98 99 97 Oximetry 01/31/17 01/31/17 01/31/17 23:01 23:11 23:19 Temperature Pulse Rate 105 H 106 H 102 H Pulse Rate [ Bilateral Upper Lobe] Respiratory 14 13 17 Rate Respiratory Rate [Bilateral Upper Lobe] Blood Pressure 145/68 145/68 145/68 O2 Sat by Pulse 97 98 98 Oximetry 01/31/17 01/31/17 01/31/17 23:21 23:31 23:41 Temperature Pulse Rate 107 H 103 H 103 H Pulse Rate [ Bilateral Upper Lobe] Respiratory 13 15 15 Rate Respiratory Rate [Bilateral Upper Lobe] Blood Pressure 145/68 141/69 141/69 O2 Sat by Pulse 98 98 98 Oximetry 01/31/17 01/31/17 02/01/17 23:51 23:52 00:00 Temperature 98.7 F Pulse Rate 101 H Pulse Rate [ Bilateral Upper Lobe] Respiratory 14 18 Rate Respiratory Rate [Bilateral Upper Lobe] Blood Pressure 141/69 O2 Sat by Pulse 98 Oximetry 02/01/17 02/01/17 02/01/17 00:01 00:11 00:21 Temperature Pulse Rate 99 H 97 H 109 H Pulse Rate [ Bilateral Upper Lobe] Respiratory 12 14 19 Rate Respiratory Rate [Bilateral Upper Lobe] Blood Pressure 129/63 129/63 129/63 O2 Sat by Pulse 99 98 96 Oximetry 02/01/17 02/01/17 02/01/17 00:25 00:31 00:41 Temperature Pulse Rate 102 H 103 H 106 H Pulse Rate [ Bilateral Upper Lobe] Respiratory 18 18 18 Rate Respiratory Rate [Bilateral Upper Lobe] Blood Pressure 129/63 129/63 O2 Sat by Pulse 99 99 99 Oximetry 02/01/17 02/01/17 02/01/17 00:51 01:01 01:11 Temperature Pulse Rate 103 H 101 H 103 H Pulse Rate [ Bilateral Upper Lobe] Respiratory 17 16 14 Rate Respiratory Rate [Bilateral Upper Lobe] Blood Pressure 129/63 151/75 151/75 O2 Sat by Pulse 99 98 98 Oximetry 02/01/17 02/01/17 02/01/17 01:21 01:31 01:41 Temperature Pulse Rate 94 H 99 H 102 H Pulse Rate [ Bilateral Upper Lobe] Respiratory 14 15 16 Rate Respiratory Rate [Bilateral Upper Lobe] Blood Pressure 151/75 151/75 169/79 O2 Sat by Pulse 99 98 99 Oximetry 02/01/17 02/01/17 02/01/17 01:51 02:01 02:11 Temperature Pulse Rate 112 H 106 H 104 H Pulse Rate [ Bilateral Upper Lobe] Respiratory 18 17 17 Rate Respiratory Rate [Bilateral Upper Lobe] Blood Pressure 169/79 152/81 152/81 O2 Sat by Pulse 99 99 93 Oximetry 02/01/17 02/01/17 02/01/17 02:22 02:31 02:41 Temperature Pulse Rate 111 H 104 H 103 H Pulse Rate [ Bilateral Upper Lobe] Respiratory 19 18 14 Rate Respiratory Rate [Bilateral Upper Lobe] Blood Pressure 152/81 145/79 O2 Sat by Pulse 97 99 99 Oximetry 02/01/17 02/01/17 02/01/17 02:42 02:51 02:57 Temperature Pulse Rate 107 H Pulse Rate [ 102 H 104 H Bilateral Upper Lobe] Respiratory 22 Rate Respiratory 14 14 Rate [Bilateral Upper Lobe] Blood Pressure 152/81 O2 Sat by Pulse 92 Oximetry 02/01/17 02/01/17 02/01/17 03:01 03:11 03:21 Temperature Pulse Rate 102 H 104 H 103 H Pulse Rate [ Bilateral Upper Lobe] Respiratory 13 15 14 Rate Respiratory Rate [Bilateral Upper Lobe] Blood Pressure 153/71 153/71 153/71 O2 Sat by Pulse 99 99 97 Oximetry 02/01/17 02/01/17 02/01/17 03:31 03:41 03:42 Temperature 98.6 F Pulse Rate 105 H 101 H Pulse Rate [ Bilateral Upper Lobe] Respiratory 14 15 Rate Respiratory Rate [Bilateral Upper Lobe] Blood Pressure 148/74 148/74 O2 Sat by Pulse 97 97 Oximetry - Labs CBC & Chem 7: 01/31/17 04:27 01/31/17 04:27 Labs: Abnormal lab results 01/31/17 01/31/17 01/31/17 Range/Units 04:15 10:57 23:22 POC ABG pH 7.288 L (7.35-7.45) POC ABG pCO2 46.1 H (35-45) Phosphorus 4.60 H (2.5-4.5) mg/dL Urine Creatinine 183.1 H (0.1-20.0) mg/dL Urine Total Protein 90 H (5-11.8) mg/dL - Imaging and cardiology Chest x-ray: report reviewed CT Scan - head: report reviewed
[2017-02-01 09:05] LABS: Chloride 101.7 mmol/L (98-107); Potassium 4.8 mmol/L (3.6-5.0)
[2017-02-01] MEDS: PEPCID IV SCH (10:00)
[2017-02-01] MEDS: NORVASC PO SCH (10:00)
[2017-02-01] MEDS ORDERED: NON-FORMULARY (Rosuvastatin (Nf) 10 MG) PO SCH (10:00)
[2017-02-01] MEDS: LEVAQUIN PO SCH (10:00)
[2017-02-01] MEDS: HALFPRIN EC PO SCH (10:01)
[2017-02-01] MEDS: TOPROL XL PO SCH (10:01)
[2017-02-01] MEDS: IMDUR PO SCH (10:01)
--- NOTE | 2017-02-01 10:44 | Progress Note ---
Subjective Principal diagnosis: Acute Hypoxemic Hypercapnic Resp Failure Interval history: Patient was seen today for follow-up, on many renal related issues she is more alert awake pleasant today Creatinine continues to worsen Better aware about renal related issues Interdisciplinary notes were reviewed Vitals labs intake and output medications were reviewed from today Allergies: Reviewed Social history: Reviewed Family history: Reviewed Physical examination HEENT: Oral mucosa moist no pharyngeal erythema Neck: Supple no JVD Chest: bilateral basilar wheezes and crackles slowly improving Heart: Regular rate and rhythm S1-S2 heard no S3-S4 Abdomen: Soft nontender no renal bruit no CVA tenderness no suprapubic fullness Extremity: Mild edema dry skin no peripheral cyanosis pulses palpable Neurological: Alert awake Musculoskeletal: No joint effusion noted Assessment and plan renal failure in a patient with baseline creatinine has been around 2 in August 2016 when she was admitted at [facility]. Patient was there with uncontrolled hypertension Currently she has acute renal failure likely which is worsening due to acute tubular necrosis resulting from hypoxemia respiratory failure etc. 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 Assessment adequate texture and to see if she has significantly increased echogenicity also to rule out any possibility of obstructive etiology which appears to be less likely here Patient is very poorly informed about her health situation which was clarified with her at length Labs were discussed with patient explained and simple [place] does have good understanding off renal related issues, Will continue to follow and make recommendation from renal standpoint Objective - Vital Signs Vital signs: Vital Signs - 12hr 01/31/17 01/31/17 01/31/17 22:51 23:01 23:11 Temperature Pulse Rate 106 H 105 H 106 H Pulse Rate [ Bilateral Upper Lobe] Respiratory 14 14 13 Rate Respiratory Rate [Bilateral Upper Lobe] Blood Pressure 154/73 145/68 145/68 O2 Sat by Pulse 97 97 98 Oximetry 01/31/17 01/31/17 01/31/17 23:19 23:21 23:31 Temperature Pulse Rate 102 H 107 H 103 H Pulse Rate [ Bilateral Upper Lobe] Respiratory 17 13 15 Rate Respiratory Rate [Bilateral Upper Lobe] Blood Pressure 145/68 145/68 141/69 O2 Sat by Pulse 98 98 98 Oximetry 01/31/17 01/31/17 01/31/17 23:41 23:51 23:52 Temperature 98.7 F Pulse Rate 103 H 101 H Pulse Rate [ Bilateral Upper Lobe] Respiratory 15 14 Rate Respiratory Rate [Bilateral Upper Lobe] Blood Pressure 141/69 141/69 O2 Sat by Pulse 98 98 Oximetry 02/01/17 02/01/17 02/01/17 00:00 00:01 00:11 Temperature Pulse Rate 99 H 97 H Pulse Rate [ Bilateral Upper Lobe] Respiratory 18 12 14 Rate Respiratory Rate [Bilateral Upper Lobe] Blood Pressure 129/63 129/63 O2 Sat by Pulse 99 98 Oximetry 02/01/17 02/01/17 02/01/17 00:21 00:25 00:31 Temperature Pulse Rate 109 H 102 H 103 H Pulse Rate [ Bilateral Upper Lobe] Respiratory 19 18 18 Rate Respiratory Rate [Bilateral Upper Lobe] Blood Pressure 129/63 129/63 O2 Sat by Pulse 96 99 99 Oximetry 02/01/17 02/01/17 02/01/17 00:41 00:51 01:01 Temperature Pulse Rate 106 H 103 H 101 H Pulse Rate [ Bilateral Upper Lobe] Respiratory 18 17 16 Rate Respiratory Rate [Bilateral Upper Lobe] Blood Pressure 129/63 129/63 151/75 O2 Sat by Pulse 99 99 98 Oximetry 02/01/17 02/01/17 02/01/17 01:11 01:21 01:31 Temperature Pulse Rate 103 H 94 H 99 H Pulse Rate [ Bilateral Upper Lobe] Respiratory 14 14 15 Rate Respiratory Rate [Bilateral Upper Lobe] Blood Pressure 151/75 151/75 151/75 O2 Sat by Pulse 98 99 98 Oximetry 02/01/17 02/01/17 02/01/17 01:41 01:51 02:01 Temperature Pulse Rate 102 H 112 H 106 H Pulse Rate [ Bilateral Upper Lobe] Respiratory 16 18 17 Rate Respiratory Rate [Bilateral Upper Lobe] Blood Pressure 169/79 169/79 152/81 O2 Sat by Pulse 99 99 99 Oximetry 02/01/17 02/01/17 02/01/17 02:11 02:22 02:31 Temperature Pulse Rate 104 H 111 H 104 H Pulse Rate [ Bilateral Upper Lobe] Respiratory 17 19 18 Rate Respiratory Rate [Bilateral Upper Lobe] Blood Pressure 152/81 152/81 O2 Sat by Pulse 93 97 99 Oximetry 02/01/17 02/01/17 02/01/17 02:41 02:42 02:51 Temperature Pulse Rate 103 H 107 H Pulse Rate [ 102 H Bilateral Upper Lobe] Respiratory 14 22 Rate Respiratory 14 Rate [Bilateral Upper Lobe] Blood Pressure 145/79 152/81 O2 Sat by Pulse 99 92 Oximetry 02/01/17 02/01/17 02/01/17 02:57 03:01 03:11 Temperature Pulse Rate 102 H 104 H Pulse Rate [ 104 H Bilateral Upper Lobe] Respiratory 13 15 Rate Respiratory 14 Rate [Bilateral Upper Lobe] Blood Pressure 153/71 153/71 O2 Sat by Pulse 99 99 Oximetry 02/01/17 02/01/17 02/01/17 03:21 03:31 03:41 Temperature Pulse Rate 103 H 105 H 101 H Pulse Rate [ Bilateral Upper Lobe] Respiratory 14 14 15 Rate Respiratory Rate [Bilateral Upper Lobe] Blood Pressure 153/71 148/74 148/74 O2 Sat by Pulse 97 97 97 Oximetry 02/01/17 02/01/17 02/01/17 03:42 03:51 04:00 Temperature 98.6 F Pulse Rate 108 H Pulse Rate [ Bilateral Upper Lobe] Respiratory 23 18 Rate Respiratory Rate [Bilateral Upper Lobe] Blood Pressure 148/74 O2 Sat by Pulse 91 Oximetry 02/01/17 02/01/17 02/01/17 04:01 04:11 04:21 Temperature Pulse Rate 102 H 99 H 103 H Pulse Rate [ Bilateral Upper Lobe] Respiratory 16 15 16 Rate Respiratory Rate [Bilateral Upper Lobe] Blood Pressure 143/78 143/78 143/78 O2 Sat by Pulse 91 95 96 Oximetry 02/01/17 02/01/17 02/01/17 04:31 04:41 04:51 Temperature Pulse Rate 106 H 103 H 102 H Pulse Rate [ Bilateral Upper Lobe] Respiratory 13 16 16 Rate Respiratory Rate [Bilateral Upper Lobe] Blood Pressure 157/81 157/81 157/81 O2 Sat by Pulse 97 99 99 Oximetry 02/01/17 02/01/17 02/01/17 05:01 05:11 05:21 Temperature Pulse Rate 102 H 95 H 108 H Pulse Rate [ Bilateral Upper Lobe] Respiratory 16 17 15 Rate Respiratory Rate [Bilateral Upper Lobe] Blood Pressure 162/75 162/75 157/81 O2 Sat by Pulse 98 98 99 Oximetry 1202/01/17 02/01/17 05:31 05:41 05:51 Temperature Pulse Rate 105 H 101 H 99 H Pulse Rate [ Bilateral Upper Lobe] Respiratory 16 18 15 Rate Respiratory Rate [Bilateral Upper Lobe] Blood Pressure 160/100 160/100 160/100 O2 Sat by Pulse 94 93 92 Oximetry 02/01/17 02/01/17 02/01/17 06:01 06:11 06:21 Temperature Pulse Rate 104 H 104 H 104 H Pulse Rate [ Bilateral Upper Lobe] Respiratory 21 18 18 Rate Respiratory Rate [Bilateral Upper Lobe] Blood Pressure 160/100 160/100 160/100 O2 Sat by Pulse 87 87 87 Oximetry 02/01/17 02/01/17 02/01/17 06:31 06:41 06:51 Temperature Pulse Rate 105 H 102 H 105 H Pulse Rate [ Bilateral Upper Lobe] Respiratory 16 17 17 Rate Respiratory Rate [Bilateral Upper Lobe] Blood Pressure 185/88 185/88 185/88 O2 Sat by Pulse 88 87 89 Oximetry 02/01/17 02/01/17 02/01/17 07:01 07:11 07:21 Temperature Pulse Rate 104 H 106 H 107 H Pulse Rate [ Bilateral Upper Lobe] Respiratory 21 20 15 Rate Respiratory Rate [Bilateral Upper Lobe] Blood Pressure 185/88 178/79 178/79 O2 Sat by Pulse 100 100 100 Oximetry 02/01/17 02/01/17 02/01/17 07:31 08:00 10:00 Temperature 98.4 F Pulse Rate 100 H 110 H Pulse Rate [ Bilateral Upper Lobe] Respiratory 16 Rate Respiratory Rate [Bilateral Upper Lobe] Blood Pressure 185/88 178/78 O2 Sat by Pulse 100 Oximetry 02/01/17 10:01 Temperature Pulse Rate 107 H Pulse Rate [ Bilateral Upper Lobe] Respiratory Rate Respiratory Rate [Bilateral Upper Lobe] Blood Pressure 178/78 O2 Sat by Pulse Oximetry - Lab 01/31/17 04:27 02/01/17 07:57 Most recent lab results Calcium 10.0 mg/dL (8.4-10.2) 02/01/17 07:57 Phosphorus 4.60 mg/dL (2.5-4.5) H 01/31/17 23:22 Magnesium 2.80 mg/dL (1.7-2.3) H 01/30/17 12:10 Urine Creatinine 183.1 mg/dL (0.1-20.0) H 01/31/17 04:15 Urine Sodium 19 mmol/L 01/31/17 04:15 Urine Total Protein 90 mg/dL (5-11.8) H 01/31/17 04:15
--- NOTE | 2017-02-01 12:39 | Vascular Lab Report ---
LOWER EXTREMITY VENOUS DUPLEX: REASON FOR EXAM: Elevated d-dimer. COMMENTS ON THE RIGHT: All veins visualized are freely compressible without evidence of internal echogenicity. Flow is spontaneous and phasic throughout. COMMENTS ON THE LEFT: All veins visualized are freely compressible without evidence of internal echogenicity. Flow is spontaneous and phasic throughout. IMPRESSION: No evidence of acute or chronic deep venous thrombosis in either lower extremity.
[2017-02-01] MEDS ORDERED: VANCOMYCIN 1,250 MG in NACL 0.9% 250ML 250 ML IV SCH (15:00)
--- NOTE | 2017-02-01 15:01 | Progress Note ---
Assessment and Plan / Acute hypoxic Respiratory failure Patient intubated for airway protection and respiratory failure. Intensiivist consult placed s/p extubation on 01/31/17 cont nebs, BiPAP as needed / Sepsis likely from RLL Pna and UTI will cont abx coverage, follow cx /Diabetes mellitus Cont SSI, Levemir monitor BG, adjust insulin dose as needed /Cardiomyopathy h/o ECHO ordered and has normal EF / RLL pneumonia Possible aspiration pneumonia IV Zosyn and Vancomycin for now /UTI (urinary tract infection) cont on Zosyn, follow cx /GEORGE (acute kidney injury) IV FLUIDS FOR NOw, consulted nephrology /hyperkalemia likely from renal failure kayexalate if k level >5.2 /DVT prophylaxis ON LOVENOX Brif history: Patient presented to the emergency department via EMS in respiratory distress. The patient was placed on BIPAP and was very effective initially but she became labored, desaturated and was intubated in the ER by the ER physician. She was placed on mechanical ventilatory support and admitted to CC unit. Physical exam: General appearance: obese AAF on bed without any acute distress Eyes: non-icteric ENT: oropharynx moist Neck: supple, no lymphadenopathy, no JVD Respiratory: Effort: nonlabored Ascultation: Right: rhonchi, Bilateral: diminished breath sounds, wheezes Cardiovascular: regular rate and rhythm, other (S1,S2, No murmurs, gallops or rubs) Gastrointestinal: normoactive bowel sounds, soft, non-tender, non-distended Integumentary: normal, warm, (plaque like, pigmented lesions on the anterior tibial surfaces bilaterally) Extremities: no cyanosis, no edema, pulses normal, Neuro: follows commands, pupils equal and round Subjective Date of service: 02/01/17 Principal diagnosis: Acute Hypoxemic Hypercapnic Resp Failure Interval history: Pt seen and examined OFF ventilator support, off BiPAP states that she feels better, denies chest pain Objective - Constitutional Vitals: Vital Signs - 12hr 02/01/17 02/01/17 02/01/17 03:01 03:11 03:21 Temperature Pulse Rate 102 H 104 H 103 H Pulse Rate [ From Monitor] Respiratory 13 15 14 Rate Blood Pressure 153/71 153/71 153/71 O2 Sat by Pulse 99 99 97 Oximetry 02/01/17 02/01/17 02/01/17 03:31 03:41 03:42 Temperature 98.6 F Pulse Rate 105 H 101 H Pulse Rate [ From Monitor] Respiratory 14 15 Rate Blood Pressure 148/74 148/74 O2 Sat by Pulse 97 97 Oximetry 02/01/17 02/01/17 02/01/17 03:51 04:00 04:01 Temperature Pulse Rate 108 H 102 H Pulse Rate [ From Monitor] Respiratory 23 18 16 Rate Blood Pressure 148/74 143/78 O2 Sat by Pulse 91 91 Oximetry 02/01/17 02/01/17 02/01/17 04:11 04:21 04:31 Temperature Pulse Rate 99 H 103 H 106 H Pulse Rate [ From Monitor] Respiratory 15 16 13 Rate Blood Pressure 143/78 143/78 157/81 O2 Sat by Pulse 95 96 97 Oximetry 02/01/17 02/01/17 02/01/17 04:41 04:51 05:01 Temperature Pulse Rate 103 H 102 H 102 H Pulse Rate [ From Monitor] Respiratory 16 16 16 Rate Blood Pressure 157/81 157/81 162/75 O2 Sat by Pulse 99 99 98 Oximetry 02/01/17 02/01/17 02/01/17 05:11 05:21 05:31 Temperature Pulse Rate 95 H 108 H 105 H Pulse Rate [ From Monitor] Respiratory 17 15 16 Rate Blood Pressure 162/75 157/81 160/100 O2 Sat by Pulse 98 99 94 Oximetry 02/01/17 02/01/17 02/01/17 05:41 05:51 06:01 Temperature Pulse Rate 101 H 99 H 104 H Pulse Rate [ From Monitor] Respiratory 18 15 21 Rate Blood Pressure 160/100 160/100 160/100 O2 Sat by Pulse 93 92 87 Oximetry 02/01/17 02/01/17 02/01/17 06:11 06:21 06:31 Temperature Pulse Rate 104 H 104 H 105 H Pulse Rate [ From Monitor] Respiratory 18 18 16 Rate Blood Pressure 160/100 160/100 185/88 O2 Sat by Pulse 87 87 88 Oximetry 02/01/17 02/01/17 02/01/17 06:41 06:51 07:01 Temperature Pulse Rate 102 H 105 H 104 H Pulse Rate [ From Monitor] Respiratory 17 17 21 Rate Blood Pressure 185/88 185/88 185/88 O2 Sat by Pulse 87 89 100 Oximetry 02/01/17 02/01/17 02/01/17 07:11 07:21 07:31 Temperature Pulse Rate 106 H 107 H 100 H Pulse Rate [ From Monitor] Respiratory 20 15 16 Rate Blood Pressure 178/79 178/79 185/88 O2 Sat by Pulse 100 100 100 Oximetry 02/01/17 02/01/17 02/01/17 07:41 07:51 08:00 Temperature 98.4 F Pulse Rate 102 H 105 H Pulse Rate [ 106 H From Monitor] Respiratory 15 20 20 Rate Blood Pressure 185/88 185/88 O2 Sat by Pulse 100 98 99 Oximetry 02/01/17 02/01/17 02/01/17 08:01 08:11 08:21 Temperature Pulse Rate 106 H 107 H 104 H Pulse Rate [ From Monitor] Respiratory 20 21 17 Rate Blood Pressure 185/88 185/88 185/88 O2 Sat by Pulse 99 99 99 Oximetry 02/01/17 02/01/17 02/01/17 08:31 08:41 08:51 Temperature Pulse Rate 106 H 108 H 116 H Pulse Rate [ From Monitor] Respiratory 21 17 22 Rate Blood Pressure 185/88 185/88 185/88 O2 Sat by Pulse 99 99 98 Oximetry 02/01/17 02/01/17 02/01/17 09:01 09:11 09:21 Temperature Pulse Rate 107 H 108 H 109 H Pulse Rate [ From Monitor] Respiratory 18 21 21 Rate Blood Pressure 203/96 203/96 203/96 O2 Sat by Pulse 99 99 99 Oximetry 02/01/17 02/01/17 02/01/17 09:31 09:41 09:51 Temperature Pulse Rate 107 H 106 H 105 H Pulse Rate [ From Monitor] Respiratory 18 18 17 Rate Blood Pressure 178/78 178/78 178/78 O2 Sat by Pulse 99 98 98 Oximetry 02/01/17 02/01/17 02/01/17 10:00 10:01 10:11 Temperature Pulse Rate 106 H 106 H 104 H Pulse Rate [ From Monitor] Respiratory 18 19 Rate Blood Pressure 178/78 179/83 179/83 O2 Sat by Pulse 99 99 Oximetry 02/01/17 02/01/17 02/01/17 10:21 10:31 10:41 Temperature Pulse Rate 105 H 103 H 106 H Pulse Rate [ From Monitor] Respiratory 18 17 16 Rate Blood Pressure 179/83 169/77 169/77 O2 Sat by Pulse 99 99 98 Oximetry 02/01/17 02/01/17 02/01/17 10:51 11:01 11:11 Temperature Pulse Rate 105 H 106 H 103 H Pulse Rate [ From Monitor] Respiratory 19 16 19 Rate Blood Pressure 169/77 169/77 143/78 O2 Sat by Pulse 100 100 99 Oximetry 02/01/17 02/01/17 02/01/17 11:21 11:31 11:41 Temperature Pulse Rate 114 H 104 H 103 H Pulse Rate [ From Monitor] Respiratory 31 H 18 17 Rate Blood Pressure 143/78 143/78 143/78 O2 Sat by Pulse 98 100 98 Oximetry 02/01/17 02/01/17 02/01/17 11:51 12:00 12:01 Temperature 98.1 F Pulse Rate 102 H 104 H Pulse Rate [ 104 H From Monitor] Respiratory 15 20 20 Rate Blood Pressure 143/78 180/86 O2 Sat by Pulse 100 100 100 Oximetry 02/01/17 02/01/17 02/01/17 12:11 12:21 12:31 Temperature Pulse Rate 110 H 109 H 111 H Pulse Rate [ From Monitor] Respiratory 25 H 18 22 Rate Blood Pressure 180/86 180/86 180/86 O2 Sat by Pulse 99 99 99 Oximetry 02/01/17 02/01/17 02/01/17 12:41 12:51 13:01 Temperature Pulse Rate 114 H 106 H 104 H Pulse Rate [ From Monitor] Respiratory 19 18 19 Rate Blood Pressure 180/86 180/86 180/86 O2 Sat by Pulse 98 99 99 Oximetry 02/01/17 02/01/17 02/01/17 13:10 13:21 13:30 Temperature Pulse Rate 107 H 111 H 106 H Pulse Rate [ From Monitor] Respiratory 21 21 18 Rate Blood Pressure 143/78 144/74 144/74 O2 Sat by Pulse 99 97 100 Oximetry 02/01/17 02/01/17 02/01/17 13:41 13:51 14:01 Temperature Pulse Rate 103 H 109 H 106 H Pulse Rate [ From Monitor] Respiratory 18 26 H 17 Rate Blood Pressure 144/74 144/74 126/75 O2 Sat by Pulse 99 97 99 Oximetry 02/01/17 14:11 Temperature Pulse Rate 101 H Pulse Rate [ From Monitor] Respiratory 18 Rate Blood Pressure 136/72 O2 Sat by Pulse 99 Oximetry - Labs CBC & Chem 7: 02/02/17 05:16 02/02/17 05:16 Labs: Abnormal lab results 01/31/17 01/31/17 02/01/17 Range/Units 04:15 23:22 07:57 Sodium 135 L (137-145) mmol/L Carbon Dioxide 18 L (22-30) mmol/L BUN 38 H (7-17) mg/dL Creatinine 4.7 H (0.7-1.2) mg/dL Glucose 155 H (65-100) mg/dL POC Glucose (70-105) Phosphorus 4.60 H (2.5-4.5) mg/dL Urine Creatinine 183.1 H (0.1-20.0) mg/dL Urine Total Protein 90 H (5-11.8) mg/dL 02/01/17 Range/Units 07:58 Sodium (137-145) mmol/L Carbon Dioxide (22-30) mmol/L BUN (7-17) mg/dL Creatinine (0.7-1.2) mg/dL Glucose (65-100) mg/dL POC Glucose 136 H (70-105) Phosphorus (2.5-4.5) mg/dL Urine Creatinine (0.1-20.0) mg/dL Urine Total Protein (5-11.8) mg/dL
[2017-02-01] MEDS: DUONEB *Not for PRN Use IH SCH ×2 (15:43→20:53)
[2017-02-01 18:35] LABS: ISTAT Base Excess -2; ISTAT HCO3 23.6; ISTAT PCO2 44.2 (35-45); ISTAT PH 7.335 (7.35-7.45); ISTAT PO2 94 (80-105); ISTAT SO2 97; ISTAT TCO2 25
--- NOTE | 2017-02-01 19:03 | Ultrasound Report ---
FINAL REPORT EXAM: US RENAL BILAT HISTORY: renal failure chronic kidney disease TECHNIQUE: Ultrasound examination of the kidneys PRIORS: None. FINDINGS: Visualized right kidney: 11.1 x 4.5 cm. Visualized left kidney: 10.0 x 5.2 cm. Renal cortical thickness is 1.5 cm on right and 1.7 cm on the left. Focal lesion: None Calculus: None Hydronephrosis: None Perinephric fluid: None Visualized urinary bladder: No evidence of focal abnormality. IMPRESSION: No sonographic evidence of renal pathology
[2017-02-01] MEDS: MORPHINE IV PRN (19:28)
[2017-02-01] MEDS: DELTASONE PO SCH (19:29)
[2017-02-02] MEDS: DUONEB *Not for PRN Use IH SCH ×4 (03:02→20:36)
[2017-02-02] MEDS: HEPARIN SUB-Q SCH ×3 (05:57→22:40)
[2017-02-02 06:01] LABS: Basophils % (Auto) 0.5 % (0.0-1.8); Eosinophils % (Auto) 0.2 % (0.0-4.3); Hematocrit 32.7 % (30.3-42.9); Hemoglobin 10.3 gm/dl (10.1-14.3); Mean Corpuscular HGB Conc 32 % (30-34); Mean Corpuscular Hemoglobin 29 pg (28-32); Mean Corpuscular Volume 92 fl (79-97); Platelet Count 245 K/mm3 (140-440); Red Blood Count 3.57 M/mm3 (3.65-5.03); Red Cell Distribution Width 16.4 % (13.2-15.2); White Blood Count 5.9 K/mm3 (4.5-11.0)
[2017-02-02 06:18] LABS: Calcium 10.4 mg/dL (8.4-10.2); Chloride 101.8 mmol/L (98-107); Potassium 5.7 mmol/L (3.6-5.0)
[2017-02-02] MEDS: APRESOLINE PO SCH ×3 (08:30→20:09)
--- NOTE | 2017-02-02 08:45 | XRay Report ---
FINAL REPORT EXAM: XR CHEST 1V AP HISTORY: follow up respiratory failure TECHNIQUE: AP portable view(s) of the chest obtained. PRIORS: 02/01/2017, 01/30/2017 FINDINGS: No mediastinal shift. Cardiac silhouette is not enlarged for portable technique. No pneumothorax or effusion. Right middle lobe focal opacity is similar to prior. Linear left basilar atelectasis. IMPRESSION: Right middle lobe airspace disease/atelectasis appears similar to prior. No pneumothorax or definite effusion.
[2017-02-02] MEDS ORDERED: KIONEX PO ONE (08:50)
[2017-02-02] MEDS ORDERED: KIONEX PO NR (08:50)
--- NOTE | 2017-02-02 08:51 | Progress Note ---
Subjective Principal diagnosis: Acute Hypoxemic Hypercapnic Resp Failure Interval history: Patient was seen today for follow-up, on many renal related issues patient is noted to be mildly hyperkalemic today Better aware about renal related issues Interdisciplinary notes were reviewed Vitals labs intake and output medications were reviewed from today Allergies: Reviewed Social history: Reviewed Family history: Reviewed Physical examination HEENT: Oral mucosa moist no pharyngeal erythema Neck: Supple no JVD Chest: bilateral basilar wheezes and crackles slowly improving Heart: Regular rate and rhythm S1-S2 heard no S3-S4 Abdomen: Soft nontender no renal bruit no CVA tenderness no suprapubic fullness Extremity: Mild edema dry skin no peripheral cyanosis pulses palpable Neurological: Alert awake Musculoskeletal: No joint effusion noted Assessment and plan Renal failure in a patient with baseline creatinine has been around 2 in August 2016 when she was admitted at [facility]. patient likely has some degree of acute renal failure resulting from acute tubular necrosis resulting from hypoxemia and respiratory failure Hyperkalemia: Would like to treat medically as much as possible patient educated if it remains refractory she will need temporary dialysis which she agrees with Explained her about dialysis central venous catheter placement and possible complications Respiratory failure currently, resolved Monitor renal function and avoid nephrotoxic medication Long-term prognosis guarded to poor Labs were discussed with patient explained and simple Norwegian does have good understanding off renal related issues, Will continue to follow and make recommendation from renal standpoint Objective - Vital Signs Vital signs: Vital Signs - 12hr 02/01/17 02/01/17 02/01/17 20:59 22:00 23:19 Temperature Pulse Rate 97 H Pulse Rate [ 91 H Anterior Bilateral Throughout] Respiratory 18 Rate Respiratory 20 Rate [Anterior Bilateral Throughout] Blood Pressure O2 Sat by Pulse 99 100 Oximetry 02/02/17 02/02/17 02/02/17 00:02 02:01 03:00 Temperature 98.8 F Pulse Rate 95 H 96 H Pulse Rate [ 85 Anterior Bilateral Throughout] Respiratory 18 Rate Respiratory 20 Rate [Anterior Bilateral Throughout] Blood Pressure 136/66 O2 Sat by Pulse 97 Oximetry 02/02/17 02/02/17 03:10 05:22 Temperature 98.4 F Pulse Rate 95 H Pulse Rate [ 88 Anterior Bilateral Throughout] Respiratory 18 Rate Respiratory 18 Rate [Anterior Bilateral Throughout] Blood Pressure 147/66 O2 Sat by Pulse 92 Oximetry - Lab 02/02/17 05:16 02/02/17 05:16 Most recent lab results Calcium 10.4 mg/dL (8.4-10.2) H 02/02/17 05:16 Phosphorus 4.60 mg/dL (2.5-4.5) H 01/31/17 23:22 Magnesium 2.80 mg/dL (1.7-2.3) H 01/30/17 12:10 Urine Creatinine 183.1 mg/dL (0.1-20.0) H 01/31/17 04:15 Urine Sodium 19 mmol/L 01/31/17 04:15 Urine Total Protein 90 mg/dL (5-11.8) H 01/31/17 04:15
[2017-02-02] MEDS: HALFPRIN EC PO SCH (10:19)
[2017-02-02] MEDS: NORVASC PO SCH (10:20)
[2017-02-02] MEDS: IMDUR PO SCH (10:20)
[2017-02-02] MEDS: PEPCID PO SCH (10:21)
[2017-02-02] MEDS: TOPROL XL PO SCH (10:21)
[2017-02-02] MEDS: DELTASONE PO SCH (12:46)
--- NOTE | 2017-02-02 13:42 | Progress Note ---
Assessment and Plan / Acute hypoxic Respiratory failure Patient intubated for airway protection and respiratory failure. Intensiivist consult placed s/p extubation on 01/31/17 cont nebs, BiPAP as needed / Sepsis likely from RLL Pna and UTI will cont abx coverage, one out of two blood cx obtained on 01/30/17 positive for coag negative staph will repeat blood cx /Diabetes mellitus Cont SSI, Levemir monitor BG, adjust insulin dose as needed /Cardiomyopathy h/o ECHO ordered and has normal EF / RLL pneumonia Possible aspiration pneumonia changed IV Zosyn and Vancomycin to levaquin /UTI (urinary tract infection) cont levaquin /GEORGE (acute kidney injury) IV FLUIDS FOR NOw, consulted nephrology renal function declining, if no improvement may need temporary HD /hyperkalemia likely from renal failure kayexalate if k level >5.2 /DVT prophylaxis ON LOVENOX Brif history: Patient presented to the emergency department via EMS in respiratory distress. The patient was placed on BIPAP and was very effective initially but she became labored, desaturated and was intubated in the ER by the ER physician. She was placed on mechanical ventilatory support and admitted to CC unit. Physical exam: General appearance: obese AAF on bed without any acute distress Eyes: non-icteric ENT: oropharynx moist Neck: supple, no lymphadenopathy, no JVD Respiratory: Effort: nonlabored Ascultation: Right: rhonchi, Bilateral: diminished breath sounds, wheezes Cardiovascular: regular rate and rhythm, other (S1,S2, No murmurs, gallops or rubs) Gastrointestinal: normoactive bowel sounds, soft, non-tender, non-distended Integumentary: normal, warm, (plaque like, pigmented lesions on the anterior tibial surfaces bilaterally) Extremities: no cyanosis, no edema, pulses normal, Neuro: follows commands, pupils equal and round Subjective Date of service: 02/02/17 Principal diagnosis: Acute Hypoxemic Hypercapnic Resp Failure Interval history: Pt seen and examined off BiPAP, on N/C states that she feels better, denies chest pain Objective - Constitutional Vitals: Vital Signs - 12hr 02/02/17 02/02/17 02/02/17 02:01 03:00 03:10 Temperature Pulse Rate 96 H Pulse Rate [ 85 88 Anterior Bilateral Throughout] Respiratory Rate Respiratory 20 18 Rate [Anterior Bilateral Throughout] Blood Pressure O2 Sat by Pulse Oximetry 02/02/17 02/02/17 02/02/17 05:22 08:45 08:55 Temperature 98.4 F Pulse Rate 95 H Pulse Rate [ 93 H 90 Anterior Bilateral Throughout] Respiratory 18 Rate Respiratory 20 20 Rate [Anterior Bilateral Throughout] Blood Pressure 147/66 O2 Sat by Pulse 92 98 Oximetry 02/02/17 10:20 Temperature Pulse Rate Pulse Rate [ Anterior Bilateral Throughout] Respiratory Rate Respiratory Rate [Anterior Bilateral Throughout] Blood Pressure 157/66 O2 Sat by Pulse Oximetry - Labs CBC & Chem 7: 02/02/17 05:16 02/02/17 17:49 Labs: Abnormal lab results 02/01/17 02/01/17 02/01/17 Range/Units 11:53 15:55 18:28 RBC (3.65-5.03) M/mm3 RDW (13.2-15.2) % Lymph % (Auto) (13.4-35.0) % Lymph # (1.2-5.4) K/mm3 Seg Neutrophils % (40.0-70.0) % POC ABG pH 7.335 L (7.35-7.45) Sodium (137-145) mmol/L Potassium (3.6-5.0) mmol/L Carbon Dioxide (22-30) mmol/L BUN (7-17) mg/dL Creatinine (0.7-1.2) mg/dL Glucose (65-100) mg/dL POC Glucose 184 H 135 H (70-105) Calcium (8.4-10.2) mg/dL 02/01/17 02/02/17 02/02/17 Range/Units 21:30 05:16 05:16 RBC 3.57 L (3.65-5.03) M/mm3 RDW 16.4 H (13.2-15.2) % Lymph % (Auto) 9.4 L (13.4-35.0) % Lymph # 0.6 L (1.2-5.4) K/mm3 Seg Neutrophils % 87.2 H (40.0-70.0) % POC ABG pH (7.35-7.45) Sodium 135 L (137-145) mmol/L Potassium 5.7 H (3.6-5.0) mmol/L Carbon Dioxide 21 L (22-30) mmol/L BUN 38 H (7-17) mg/dL Creatinine 4.4 H (0.7-1.2) mg/dL Glucose 219 H (65-100) mg/dL POC Glucose 135 H (70-105) Calcium 10.4 H (8.4-10.2) mg/dL
--- NOTE | 2017-02-02 13:45 | Progress Note ---
Assessment and Plan - Patient Problems (1) Acute on chronic respiratory failure with hypoxia and hypercapnia Current Visit: Yes Status: Acute Plan to address problem: Extubated Wean supplemental oxygen for O2 sats >88% Restrictive oxygen therapy Agitation and anxiety management Serial ABGs and CXRs Nocturnal NIPPV (2) Multifocal pneumonia Current Visit: Yes Status: Acute Plan to address problem: Antibiotics for CAP. Appears to have an aspiration component. Moxifloxacin- as it does not need adjustments for renal function and it also treats for aspiration (3) COPD exacerbation Current Visit: Yes Status: Acute Plan to address problem: Bronchodilators Steroids while monitoring accuchecks and glycemic control Short steroid taper in view of possible heart failure VTE prophylaxis Supplemental oxygen, keep O2 sats>88 Increase activity (4) Cardiomyopathy Current Visit: Yes Status: Chronic Qualifiers: Cardiomyopathy type: unspecified Qualified Code(s): I42.9 - Cardiomyopathy , unspecified Plan to address problem: Cardioprotective measures Follow up 2D echocardiogram report (5) Renal failure Current Visit: Yes Status: Acute Qualifiers: Renal failure chronicity: acute Acute renal failure type: unspecified Qualified Code(s): N17.9 - Acute kidney failure, unspecified Plan to address problem: Avoid nephrotoxic agents Adjust all medications for GFR and CrCl Monitor closely. (6) Diabetes mellitus Current Visit: Yes Status: Chronic Qualifiers: Diabetes mellitus type: type 2 Chronic kidney disease stage: stage 3 ( moderate) (7) Morbid obesity Current Visit: Yes Status: Acute Plan to address problem: Weight loss and lifestyle modification counselling done Subjective Date of service: 02/01/17 Principal diagnosis: Acute Hypoxemic Hypercapnic Resp Failure Interval history: Patient seen and examined. Vitals, labs, medications, chart reviewed. Extubated yesterday. Refused to use NIPPV last night. She denies any chest pain, no shortness of brath. No fevers or chills. no nausea, no vomiting, no diarrhea. "I feel much better" No acute overnight events. Discussed in ICU interdisciplinary rounds Objective Vital Signs - 12hr 02/02/17 02/02/17 02/02/17 02:01 03:00 03:10 Temperature Pulse Rate 96 H Pulse Rate [ 85 88 Anterior Bilateral Throughout] Respiratory Rate Respiratory 20 18 Rate [Anterior Bilateral Throughout] Blood Pressure O2 Sat by Pulse Oximetry 02/02/17 02/02/17 02/02/17 05:22 08:45 08:55 Temperature 98.4 F Pulse Rate 95 H Pulse Rate [ 93 H 90 Anterior Bilateral Throughout] Respiratory 18 Rate Respiratory 20 20 Rate [Anterior Bilateral Throughout] Blood Pressure 147/66 O2 Sat by Pulse 92 98 Oximetry 02/02/17 10:20 Temperature Pulse Rate Pulse Rate [ Anterior Bilateral Throughout] Respiratory Rate Respiratory Rate [Anterior Bilateral Throughout] Blood Pressure 157/66 O2 Sat by Pulse Oximetry Constitutional: no acute distress, agitated, other (orally intubated to MVS) Eyes: non-icteric ENT: oropharynx moist Neck: supple, no lymphadenopathy, no JVD Effort: mildly labored Ascultation: Right: rhonchi, Bilateral: diminished breath sounds, wheezes Cardiovascular: regular rate and rhythm, other (S1,S2, No murmurs, gallops or rubs) Gastrointestinal: normoactive bowel sounds, soft, non-tender, non-distended Integumentary: normal Extremities: no cyanosis, no edema, pulses normal, other (plaque like, pigmented lesions on the anterior tibial surfaces bilaterally) Neurologic: normal mental status, non-focal exam (patient was able to obey one step commands), pupils equal and round, motor strength normal and, unable to assess (s) Psychiatric: mood appropriate, affect normal CBC and BMP: 02/02/17 05:16 02/02/17 05:16 ABG, PT/INR, D-dimer: ABG POC ABG pH 7.335 (7.35-7.45) L 02/01/17 18:28 POC ABG pCO2 44.2 (35-45) 02/01/17 18:28 POC ABG pO2 94 (80-105) 02/01/17 18:28 POC ABG HCO3 23.6 02/01/17 18:28 POC ABG Total CO2 25 02/01/17 18:28 POC ABG O2 Sat 97 02/01/17 18:28 PT/INR, D-dimer PT 13.7 Sec. (12.2-14.9) 01/30/17 12:10 INR 1.00 (0.87-1.13) 01/30/17 12:10 D-Dimer 1524.84 ng/mlDDU (0-234) H 01/30/17 12:10 Abnormal lab findings: Abnormal Labs 01/30/17 01/30/1717 12:10 12:10 12:10 RBC RDW 16.0 H Lymph % (Auto) Lymph # Seg Neutrophils % Seg Neuts % (Manual) 34.0 L Eosinophils % (Manual) 30.0 H Eosinophils # (Manual) 1.6 H D-Dimer 1524.84 H POC ABG pH POC ABG pCO2 POC ABG pO2 VBG pH Sodium Potassium Carbon Dioxide BUN 21 H Creatinine 3.1 H Glucose 276 H POC Glucose Calcium Phosphorus Magnesium 2.80 H Alkaline Phosphatase Total Creatine Kinase 260 H CK-MB (CK-2) 4.4 H Troponin T 0.044 H NT-Pro-B Natriuret Pep Albumin HDL Cholesterol 70 H Urine WBC (Auto) Urine Creatinine Urine Total Protein 01/30/17 01/30/17 01/30/17 12:10 12:10 12:27 RBC RDW Lymph % (Auto) Lymph # Seg Neutrophils % Seg Neuts % (Manual) Eosinophils % (Manual) Eosinophils # (Manual) D-Dimer POC ABG pH 7.262 L POC ABG pCO2 49.7 H POC ABG pO2 220 H VBG pH 7.104 L* Sodium Potassium Carbon Dioxide BUN Creatinine Glucose POC Glucose Calcium Phosphorus Magnesium Alkaline Phosphatase 175 H Total Creatine Kinase CK-MB (CK-2) Troponin T NT-Pro-B Natriuret Pep 9813 H Albumin 3.4 L HDL Cholesterol Urine WBC (Auto) Urine Creatinine Urine Total Protein 01/30/17 01/31/17 01/31/17 12:37 03:58 04:15 RBC RDW Lymph % (Auto) Lymph # Seg Neutrophils % Seg Neuts % (Manual) Eosinophils % (Manual) Eosinophils # (Manual) D-Dimer POC ABG pH POC ABG pCO2 32.1 L POC ABG pO2 VBG pH Sodium Potassium Carbon Dioxide BUN Creatinine Glucose POC Glucose Calcium Phosphorus Magnesium Alkaline Phosphatase Total Creatine Kinase CK-MB (CK-2) Troponin T NT-Pro-B Natriuret Pep Albumin HDL Cholesterol Urine WBC (Auto) 24.0 H Urine Creatinine 183.1 H Urine Total Protein 90 H 01/31/17 01/31/17 01/31/17 04:27 04:27 10:57 RBC RDW 16.2 H Lymph % (Auto) 8.6 L Lymph # 0.7 L Seg Neutrophils % 85.7 H Seg Neuts % (Manual) Eosinophils % (Manual) Eosinophils # (Manual) D-Dimer POC ABG pH 7.288 L POC ABG pCO2 46.1 H POC ABG pO2 VBG pH Sodium Potassium 5.3 H Carbon Dioxide 20 L BUN 30 H Creatinine 3.9 H Glucose 164 H POC Glucose Calcium 10.5 H Phosphorus Magnesium Alkaline Phosphatase Total Creatine Kinase CK-MB (CK-2) Troponin T NT-Pro-B Natriuret Pep Albumin HDL Cholesterol Urine WBC (Auto) Urine Creatinine Urine Total Protein 01/31/17 02/01/17 02/01/17 23:22 07:57 07:58 RBC RDW Lymph % (Auto) Lymph # Seg Neutrophils % Seg Neuts % (Manual) Eosinophils % (Manual) Eosinophils # (Manual) D-Dimer POC ABG pH POC ABG pCO2 POC ABG pO2 VBG pH Sodium 135 L Potassium Carbon Dioxide 18 L BUN 38 H Creatinine 4.7 H Glucose 155 H POC Glucose 136 H Calcium Phosphorus 4.60 H Magnesium Alkaline Phosphatase Total Creatine Kinase CK-MB (CK-2) Troponin T NT-Pro-B Natriuret Pep Albumin HDL Cholesterol Urine WBC (Auto) Urine Creatinine Urine Total Protein 02/01/17 02/01/17 02/01/17 11:53 15:55 18:28 RBC RDW Lymph % (Auto) Lymph # Seg Neutrophils % Seg Neuts % (Manual) Eosinophils % (Manual) Eosinophils # (Manual) D-Dimer POC ABG pH 7.335 L POC ABG pCO2 POC ABG pO2 VBG pH Sodium Potassium Carbon Dioxide BUN Creatinine Glucose POC Glucose 184 H 135 H Calcium Phosphorus Magnesium Alkaline Phosphatase Total Creatine Kinase CK-MB (CK-2) Troponin T NT-Pro-B Natriuret Pep Albumin HDL Cholesterol Urine WBC (Auto) Urine Creatinine Urine Total Protein 02/01/17 02/02/17 02/02/17 21:30 05:16 05:16 RBC 3.57 L RDW 16.4 H Lymph % (Auto) 9.4 L Lymph # 0.6 L Seg Neutrophils % 87.2 H Seg Neuts % (Manual) Eosinophils % (Manual) Eosinophils # (Manual) D-Dimer POC ABG pH POC ABG pCO2 POC ABG pO2 VBG pH Sodium 135 L Potassium 5.7 H Carbon Dioxide 21 L BUN 38 H Creatinine 4.4 H Glucose 219 H POC Glucose 135 H Calcium 10.4 H Phosphorus Magnesium Alkaline Phosphatase Total Creatine Kinase CK-MB (CK-2) Troponin T NT-Pro-B Natriuret Pep Albumin HDL Cholesterol Urine WBC (Auto) Urine Creatinine Urine Total Protein Chest x-ray: image reviewed Allied health notes reviewed: RT
--- NOTE | 2017-02-02 15:55 | Progress Note ---
Assessment and Plan Patient alert, awake. Resting on nasal canula 2 litres O2 saturation 98%.No acute respiratory distress. - Patient Problems (1) Acute on chronic respiratory failure with hypoxia and hypercapnia Current Visit: Yes Status: Acute Plan to address problem: O2 2 litres via nasal canula. Albuterol/atrovent aerosol treatments q 6 hours Continue Po Prednisone. Heparin 5000 units S/C q 8 hours. Continue famotadine. Continue Levaquine. (2) COPD exacerbation Current Visit: Yes Status: Acute Plan to address problem: O2 2 litres via nasal canula. Albuterol/atrovent aerosol treatments q 6 hours Continue Po Prednisone. Heparin 5000 units S/C q 8 hours. Continue famotadine. Continue Levaquine. (3) Morbid obesity Current Visit: Yes Status: Acute Plan to address problem: Weight reduction diet. Sleep study as out patient. (4) Multifocal pneumonia Current Visit: Yes Status: Acute Plan to address problem: Patient is on Levaquine. (5) Diabetes mellitus Current Visit: Yes Status: Chronic Qualifiers: Diabetes mellitus type: type 2 Chronic kidney disease stage: stage 3 ( moderate) Plan to address problem: Management as per Primary care. Subjective Date of service: 02/02/17 Principal diagnosis: Acute Hypoxemic Hypercapnic Resp Failure Interval history: Patient alert, awake. Resting on nasal canula 2 litres O2 saturation 98%.No acute respiratory distress. Objective Vital Signs - 12hr 02/02/17 02/02/17 02/02/17 05:22 08:45 08:55 Temperature 98.4 F Pulse Rate 95 H Pulse Rate [ 93 H 90 Anterior Bilateral Throughout] Respiratory 18 Rate Respiratory 20 20 Rate [Anterior Bilateral Throughout] Blood Pressure 147/66 O2 Sat by Pulse 92 98 Oximetry 02/02/17 10:20 Temperature Pulse Rate Pulse Rate [ Anterior Bilateral Throughout] Respiratory Rate Respiratory Rate [Anterior Bilateral Throughout] Blood Pressure 157/66 O2 Sat by Pulse Oximetry Constitutional: no acute distress, agitated, other (orally intubated to MVS) Eyes: non-icteric ENT: oropharynx moist Neck: supple, no lymphadenopathy, no JVD Effort: mildly labored Ascultation: Right: rhonchi, Bilateral: diminished breath sounds, wheezes Cardiovascular: regular rate and rhythm, other (S1,S2, No murmurs, gallops or rubs) Gastrointestinal: normoactive bowel sounds, soft, non-tender, non-distended Integumentary: normal Extremities: no cyanosis, no edema, pulses normal, other (plaque like, pigmented lesions on the anterior tibial surfaces bilaterally) Neurologic: normal mental status, non-focal exam (patient was able to obey one step commands), pupils equal and round, motor strength normal and, unable to assess (s) Psychiatric: mood appropriate, affect normal CBC and BMP: 02/02/17 05:16 02/02/17 05:16 ABG, PT/INR, D-dimer: ABG POC ABG pH 7.335 (7.35-7.45) L 02/01/17 18:28 POC ABG pCO2 44.2 (35-45) 02/01/17 18:28 POC ABG pO2 94 (80-105) 02/01/17 18:28 POC ABG HCO3 23.6 02/01/17 18:28 POC ABG Total CO2 25 02/01/17 18:28 POC ABG O2 Sat 97 02/01/17 18:28 PT/INR, D-dimer PT 13.7 Sec. (12.2-14.9) 01/30/17 12:10 INR 1.00 (0.87-1.13) 01/30/17 12:10 D-Dimer 1524.84 ng/mlDDU (0-234) H 01/30/17 12:10 Abnormal lab findings: Abnormal Labs 01/30/17 01/30/17 01/30/17 12:10 12:10 12:10 RBC RDW 16.0 H Lymph % (Auto) Lymph # Seg Neutrophils % Seg Neuts % (Manual) 34.0 L Eosinophils % (Manual) 30.0 H Eosinophils # (Manual) 1.6 H D-Dimer 1524.84 H POC ABG pH POC ABG pCO2 POC ABG pO2 VBG pH Sodium Potassium Carbon Dioxide BUN 21 H Creatinine 3.1 H Glucose 276 H POC Glucose Calcium Phosphorus Magnesium 2.80 H Alkaline Phosphatase Total Creatine Kinase 260 H CK-MB (CK-2) 4.4 H Troponin T 0.044 H NT-Pro-B Natriuret Pep Albumin HDL Cholesterol 70 H Urine WBC (Auto) Urine Creatinine Urine Total Protein 01/30/17 01/30/17 01/30/17 12:10 12:10 12:27 RBC RDW Lymph % (Auto) Lymph # Seg Neutrophils % Seg Neuts % (Manual) Eosinophils % (Manual) Eosinophils # (Manual) D-Dimer POC ABG pH 7.262 L POC ABG pCO2 49.7 H POC ABG pO2 220 H VBG pH 7.104 L* Sodium Potassium Carbon Dioxide BUN Creatinine Glucose POC Glucose Calcium Phosphorus Magnesium Alkaline Phosphatase 175 H Total Creatine Kinase CK-MB (CK-2) Troponin T NT-Pro-B Natriuret Pep 9813 H Albumin 3.4 L HDL Cholesterol Urine WBC (Auto) Urine Creatinine Urine Total Protein 01/30/17 01/31/17 01/31/17 12:37 03:58 04:15 RBC RDW Lymph % (Auto) Lymph # Seg Neutrophils % Seg Neuts % (Manual) Eosinophils % (Manual) Eosinophils # (Manual) D-Dimer POC ABG pH POC ABG pCO2 32.1 L POC ABG pO2 VBG pH Sodium Potassium Carbon Dioxide BUN Creatinine Glucose POC Glucose Calcium Phosphorus Magnesium Alkaline Phosphatase Total Creatine Kinase CK-MB (CK-2) Troponin T NT-Pro-B Natriuret Pep Albumin HDL Cholesterol Urine WBC (Auto) 24.0 H Urine Creatinine 183.1 H Urine Total Protein 90 H 01/31/17 01/31/17 01/31/17 04:27 04:27 10:57 RBC RDW 16.2 H Lymph % (Auto) 8.6 L Lymph # 0.7 L Seg Neutrophils % 85.7 H Seg Neuts % (Manual) Eosinophils % (Manual) Eosinophils # (Manual) D-Dimer POC ABG pH 7.288 L POC ABG pCO2 46.1 H POC ABG pO2 VBG pH Sodium Potassium 5.3 H Carbon Dioxide 20 L BUN 30 H Creatinine 3.9 H Glucose 164 H POC Glucose Calcium 10.5 H Phosphorus Magnesium Alkaline Phosphatase Total Creatine Kinase CK-MB (CK-2) Troponin T NT-Pro-B Natriuret Pep Albumin HDL Cholesterol Urine WBC (Auto) Urine Creatinine Urine Total Protein 01/31/17 02/01/17 02/01/17 23:22 07:57 07:58 RBC RDW Lymph % (Auto) Lymph # Seg Neutrophils % Seg Neuts % (Manual) Eosinophils % (Manual) Eosinophils # (Manual) D-Dimer POC ABG pH POC ABG pCO2 POC ABG pO2 VBG pH Sodium 135 L Potassium Carbon Dioxide 18 L BUN 38 H Creatinine 4.7 H Glucose 155 H POC Glucose 136 H Calcium Phosphorus 4.60 H Magnesium Alkaline Phosphatase Total Creatine Kinase CK-MB (CK-2) Troponin T NT-Pro-B Natriuret Pep Albumin HDL Cholesterol Urine WBC (Auto) Urine Creatinine Urine Total Protein 02/01/17 02/01/17 02/01/17 11:53 15:55 18:28 RBC RDW Lymph % (Auto) Lymph # Seg Neutrophils % Seg Neuts % (Manual) Eosinophils % (Manual) Eosinophils # (Manual) D-Dimer POC ABG pH 7.335 L POC ABG pCO2 POC ABG pO2 VBG pH Sodium Potassium Carbon Dioxide BUN Creatinine Glucose POC Glucose 184 H 135 H Calcium Phosphorus Magnesium Alkaline Phosphatase Total Creatine Kinase CK-MB (CK-2) Troponin T NT-Pro-B Natriuret Pep Albumin HDL Cholesterol Urine WBC (Auto) Urine Creatinine Urine Total Protein 02/01/17 02/02/17 02/02/17 21:30 05:16 05:16 RBC 3.57 L RDW 16.4 H Lymph % (Auto) 9.4 L Lymph # 0.6 L Seg Neutrophils % 87.2 H Seg Neuts % (Manual) Eosinophils % (Manual) Eosinophils # (Manual) D-Dimer POC ABG pH POC ABG pCO2 POC ABG pO2 VBG pH Sodium 135 L Potassium 5.7 H Carbon Dioxide 21 L BUN 38 H Creatinine 4.4 H Glucose 219 H POC Glucose 135 H Calcium 10.4 H Phosphorus Magnesium Alkaline Phosphatase Total Creatine Kinase CK-MB (CK-2) Troponin T NT-Pro-B Natriuret Pep Albumin HDL Cholesterol Urine WBC (Auto) Urine Creatinine Urine Total Protein Chest x-ray: report reviewed (Right middle lobe infiltrate or Atelectasis.), image reviewed Allied health notes reviewed: RT
[2017-02-02 18:42] LABS: Calcium 10.6 mg/dL (8.4-10.2); Chloride 104.9 mmol/L (98-107); Potassium 4.7 mmol/L (3.6-5.0)
[2017-02-03] MEDS: DUONEB *Not for PRN Use IH SCH ×3 (02:48→13:33)
[2017-02-03] MEDS: HEPARIN SUB-Q SCH (06:29)
--- NOTE | 2017-02-03 08:49 | Progress Note ---
Subjective Principal diagnosis: Acute Hypoxemic Hypercapnic Resp Failure Interval history: Patient was seen today for follow-up, on many renal related issues hyperkalemia improved Interdisciplinary notes were reviewed Vitals labs intake and output medications were reviewed from today Allergies: Reviewed Social history: Reviewed Family history: Reviewed Physical examination HEENT: Oral mucosa moist no pharyngeal erythema Neck: Supple no JVD Chest: bilateral basilar wheezes and crackles slowly improving Heart: Regular rate and rhythm S1-S2 heard no S3-S4 Abdomen: Soft nontender no renal bruit no CVA tenderness no suprapubic fullness Extremity: Mild edema dry skin no peripheral cyanosis pulses palpable Neurological: Alert awake Musculoskeletal: No joint effusion noted Assessment and plan Acute on chronic renal failure patient baseline creatinine in August was around 2 , likely etiology of her renal failure appears to be due to acute tubular necrosis resulting from respiratory failure, patient has been well educated that she still has severe renal failure that is to be monitored closely Hyperkalemia: Has responded well to medical treatment History of chronic uncontrolled hypertension counseled and educated Morbid obesity counseled and educated History of chronic nonsteroidal medication use Renal prognosis guarded to poor Risk of progression to end-stage renal disease: High We'll continue to follow and make recommendations from renal standpoint Patient has received enough renal counseling and education regarding multiple renal-related issues she must comply with instructions given. Will continue to follow and make recommendation from renal standpoint Objective - Vital Signs Vital signs: Vital Signs - 12hr 02/02/17 02/03/17 02/03/17 22:00 00:12 02:45 Temperature 98.5 F Pulse Rate 97 H 95 H Pulse Rate [ 86 Anterior Bilateral Throughout] Respiratory 20 Rate Respiratory 20 Rate [Anterior Bilateral Throughout] Respiratory 18 Rate [Head] Blood Pressure 150/55 O2 Sat by Pulse 95 Oximetry 02/03/17 02/03/17 02:54 04:34 Temperature 97.7 F Pulse Rate 94 H Pulse Rate [ 87 Anterior Bilateral Throughout] Respiratory 20 Rate Respiratory 18 Rate [Anterior Bilateral Throughout] Respiratory Rate [Head] Blood Pressure 177/76 O2 Sat by Pulse 98 Oximetry - Lab 02/02/17 05:16 02/03/17 10:34 Most recent lab results Calcium 10.6 mg/dL (8.4-10.2) H 02/02/17 17:49 Phosphorus 4.60 mg/dL (2.5-4.5) H 01/31/17 23:22 Magnesium 2.80 mg/dL (1.7-2.3) H 01/30/17 12:10 Urine Creatinine 183.1 mg/dL (0.1-20.0) H 01/31/17 04:15 Urine Sodium 19 mmol/L 01/31/17 04:15 Urine Total Protein 90 mg/dL (5-11.8) H 01/31/17 04:15
[2017-02-03] MEDS: APRESOLINE PO SCH (09:02)
[2017-02-03] MEDS: TOPROL XL PO SCH (10:03)
[2017-02-03] MEDS: HALFPRIN EC PO SCH (10:04)
[2017-02-03] MEDS: PEPCID PO SCH (10:05)
[2017-02-03] MEDS: IMDUR PO SCH (10:05)
[2017-02-03] MEDS: LEVAQUIN PO SCH (10:05)
[2017-02-03] MEDS: NORVASC PO SCH (10:06)
[2017-02-03 10:07] VITALS: BP 205/74
[2017-02-03] MEDS: DELTASONE PO SCH (11:09)
[2017-02-03 12:16] LABS: Calcium 10.4 mg/dL (8.4-10.2); Chloride 105.1 mmol/L (98-107); Potassium 4.2 mmol/L (3.6-5.0)
--- NOTE | 2017-02-03 13:18 | Event Note ---
Date: 02/03/17 Came to see the patient and she wants to go home. She stated that "one doctor" came and said everything is normal and she can go home. I discussed with Dr. Dhillon and she is not clear for discharge for renal stand point. Her BP was also elevated to >200 this am. I tried to explain the patient and she continue to argue and adamant to go home. I told her that she is not medically clear for discharge but if she still decides to leave she can sign AMA and leave. I explained in details the risk of leaving AMA which includes continue deterioration of renal function leading to volume overload, electrolytes imbalance, respiratory failure and even sudden cardiac .
--- NOTE | 2017-02-05 06:49 | Discharge Summary ---
Providers - Providers Date of Admission: 01/30/17 12:20 Date of discharge: 02/03/17 Attending physician: ATA CABELLO 01/30/17 11:34 Consult to Dietitian/Nutrition [CONS] Routine Physician Instructions: Reason For Exam: Reason for Consult: Write/Manage TPN/PPN 01/30/17 12:21 Consult to Physician [CONS] Urgent Consulting Provider: GAURI APPLE Reason For Exam: resp failure Place consult to:: [facility] CONSULTANT Notified:: no 01/30/17 13:50 Consult to Dietitian/Nutrition [CONS] Routine Physician Instructions: Reason For Exam: Reason for Consult: Intubated 01/30/17 16:17 Consult to Physician [CONS] Urgent Consulting Provider: PATTI CONNOR Reason For Exam: ICU floor, intubated Notified:: yes 01/31/17 13:57 Consult to Physician [CONS] Routine Consulting Provider: DEVON DHILLON Reason For Exam: [facility] [address] consult to:: Dr. Dhillon's office Notified:: Dr. Dhillon'hayes office Phone number called:: [phone] Was contact made?: Yes If yes, spoke with:: office staff Time called:: 14:20 Primary care physician: LUIS M PAEZ Hospitalization Condition: Stable Hospital course: Patient presented to the emergency department via EMS in respiratory distress. The patient was placed on BIPAP and was very effective initially but she became labored, desaturated and was intubated in the ER by the ER physician. She was placed on mechanical ventilatory support and admitted to [facility] unit. She was also placed on nebulizer breathing treatment empiric Solu-Medrol. Pulmonology was consulted and patient was eventually weaned off from the mechanical ventilation. Her oxygen saturation was being maintained with the nasal cannula supplemental oxygen. Her renal function noted to be declining. Nephrology was consulted and she was being monitored for acute kidney injury. She was transferred to the floor from ICU. On the day of her discharge She stated that "one doctor" came and said everything is normal and she can go home. I discussed with Dr. Dhillon, soil conservation technician and she was not clear for discharge for renal stand point. Her BP was also elevated to >200. I tried to explain the patient and she continue to argue and was adamant to go home. I told her that she is not medically clear for discharge but if she still decides to leave she can sign AMA and leave. I explained in details the risk of leaving AMA which includes continue deterioration of renal function leading to volume overload, electrolytes imbalance, respiratory failure and even sudden cardiac . Patient still decided to sign AMA and left the hospital. Discharge diagnosis / Acute hypoxic Respiratory failure Patient intubated for airway protection and respiratory failure. Intensiivist consult placed s/p extubation on 01/31/17 / Sepsis likely from RLL Pna and UTI one out of two blood cx obtained on 01/30/17 positive for coag negative staph /Diabetes mellitus was on SSI, Levemir, monitor BG, adjust insulin dose as needed /Cardiomyopathy h/o ECHO ordered and has normal EF / RLL pneumonia Possible aspiration pneumonia changed IV Zosyn and Vancomycin to levaquin /UTI (urinary tract infection) Placed on levaquin /GEORGE (acute kidney injury) Placed on IV FLUIDS, consulted nephrology renal function was declining, plan for a study if no improvement /hyperkalemia likely from renal failure kayexalate if k level >5.2 /DVT prophylaxis ON LOVENOX, renally dosed Physical exam: General appearance: obese AAF on bed without any acute distress Eyes: non-icteric ENT: oropharynx moist Neck: supple, no lymphadenopathy, no JVD Respiratory: Effort: nonlabored Ascultation: Right: rhonchi, Bilateral: diminished breath sounds, wheezes Cardiovascular: regular rate and rhythm, other (S1,S2, No murmurs, gallops or rubs) Gastrointestinal: normoactive bowel sounds, soft, non-tender, non-distended Integumentary: normal, warm, (plaque like, pigmented lesions on the anterior tibial surfaces bilaterally) Extremities: no cyanosis, no edema, pulses normal, Neuro: follows commands, pupils equal and round Disposition: DC-07 LEFT AGAINST MED ADVICE Core Measure Documentation - Palliative Care Palliative Care/ Comfort Measures: Not Applicable - Core Measures Any of the following diagnoses?: history only Exam - Constitutional Vitals: Temp Pulse Resp BP Pulse Ox 97.7 F 99 H 20 205/74 97 02/03/17 04:34 02/03/17 13:43 02/03/17 13:43 02/03/17 10:06 02/03/17 07:33 Plan Follow up with: LUIS M PAEZ MD [Primary Care Provider] - 7 Days Forms: AMA Form Prescriptions: ALBUTEROL NEB's [Proventil 0.083% NEBS] 2.5 mg IH PRN #30 nebu Albuterol Sulfate [Proventil Hfa] 6.7 gm IH PRN #1 hfa.aer.ad predniSONE [Deltasone] 50 mg PO QDAY #3 tablet
[2017-02-05 21:15] LABS: Myeloperoxidase Antibody <1.0 AI (<1.0)
== END 2017-02-03 14:03 | disposition left against medical advice (07) | DRG 871 ==
LOC: ED 11:17 → CC1 12:20 → 4A 02-01 15:19
PROVIDERS: ADMIT Internal Medicine; ATTEND Internal Medicine
PROC: 5A1945Z Respiratory Ventilation, 24-96 Consecutive Hours (ICD-10-PCS; principal; 2017-01-30)
PROC: 0BH18EZ Insertion of Endotracheal Airway into Trachea, Via Natural or Artificial Opening Endoscopic (ICD-10-PCS; 2017-01-30)
PROC: 4A033R1 Measurement of Arterial Saturation, Peripheral, Percutaneous Approach (ICD-10-PCS; 2017-01-30)
PROC: 5A09357 Assistance with Respiratory Ventilation, Less than 24 Consecutive Hours, Continuous Positive Airway Pressure (ICD-10-PCS; 2017-01-31)
PROC: 5A09357 Assistance with Respiratory Ventilation, Less than 24 Consecutive Hours, Continuous Positive Airway Pressure (ICD-10-PCS; 2017-02-01)
DX: A41.9 Sepsis, unspecified organism (principal); J96.21 Acute and chronic respiratory failure with hypoxia; J96.22 Acute and chronic respiratory failure with hypercapnia; N17.0 Acute kidney failure with tubular necrosis; J69.0 Pneumonitis due to inhalation of food and vomit; N39.0 Urinary tract infection, site not specified; I42.9 Cardiomyopathy, unspecified; J44.1 Chronic obstructive pulmonary disease with (acute) exacerbation; Z68.41 Body mass index [BMI] 40.0-44.9, adult; J44.0 Chronic obstructive pulmonary disease with (acute) lower respiratory infection; E11.65 Type 2 diabetes mellitus with hyperglycemia; E66.01 Morbid (severe) obesity due to excess calories; B19.20 Unspecified viral hepatitis C without hepatic coma; E87.5 Hyperkalemia; R80.9 Proteinuria, unspecified; N18.9 Chronic kidney disease, unspecified; E11.22 Type 2 diabetes mellitus with diabetic chronic kidney disease; I12.9 Hypertensive chronic kidney disease with stage 1 through stage 4 chronic kidney disease, or unspecified chronic kidney disease; Z88.2 Allergy status to sulfonamides; Z79.82 Long term (current) use of aspirin; Z79.899 Other long term (current) drug therapy; Z71.89 Other specified counseling
CPT/HCPCS: 36415; 36600; 70450; 71010; 76770; 80048; 80061; 80074; 81001; 82010; 82140; 82550; 82553; 82570; 82803; 82805; 82962; 83735; 83880; 83930; 84100; 84156; 84300; 84484; 85007; 85025; 85379; 85610; 85730; 86021; 86038; 86334; 86850; 86900; 86901; 87040; 87070; 87086; 87205; 93005; 93010; 93306; 93970; 94002; 94003; 94640; 94660; 94760; 96365; 96366; 96367; 96375; 96376; A9270-GY; J0330; J0696; J1644; J1815; J1956; J2060; J2250; J2270; J2543; J2704; J3010; J3370; J3475; J7030; J7040; J7512